=== PATIENT | male | born 1995 | race Caucasian/White ===

== ENCOUNTER → 2017-03-10 | Outpatient (REF) | payer BC ==
[2017-03-10 14:00] LABS: INFLUENZA A AMPLIFICATION NEGATIVE (NEGATIVE); INFLUENZA B AMPLIFICATION NEGATIVE (NEGATIVE)
== END ==
LOC: M LAB REF 13:14
DX: J11.1 Influenza due to unidentified influenza virus with other respiratory manifestations (principal)

== ENCOUNTER → 2017-04-11 | Outpatient (CLI) | payer BC | LOC: M RAD 11:36 | DX: N50.811 Right testicular pain (principal) ==

== ENCOUNTER → 2017-04-11 | Outpatient (CLI) | payer BC ==
[2017-04-11 16:53] LABS: BASO # 0.1 10^3/uL (0.0-0.2); BASO % 1.1 % (0.0-1.0); EOS # 0.3 10^3/uL (0.0-0.50); EOS % 5.8 % (0.0-3.0); HEMATOCRIT 45.9 % (42.0-52.0); HEMOGLOBIN 15.8 g/dl (14.0-18.0); IMMATURE GRANULOCYTE % 0.2 % (0-3.0); LYMPH # 2.4 10^3/uL (1.5-6.5); LYMPH % 42.5 % (24.0-44.0); MEAN CORPUSCULAR HEMOGLOBIN 31.4 pg (27.0-33.0); MEAN CORPUSCULAR HGB CONC 34.4 g/dl (32.0-36.5); MEAN CORPUSCULAR VOLUME 91.3 fl (80.0-96.0); MONO # 0.5 10^3/uL (0.0-0.8); MONO % 9.5 % (0.0-5.0); NEUTROPHILS # 2.3 10^3/uL (1.8-7.7); NEUTROPHILS % 40.9 % (36.0-66.0); PLATELET COUNT, AUTOMATED 218 10^3/uL (150-450); RED BLOOD COUNT 5.03 10^6/uL (4.30-6.10); RED CELL DISTRIBUTION WIDTH 12.8 % (11.5-14.5); WHITE BLOOD COUNT 5.7 10^3/uL (4.0-10.0)
[2017-04-11 17:31] LABS: ALBUMIN 5.1 GM/DL (3.2-5.2); ALKALINE PHOSPHATASE 89 U/L (45-117); ALT/SGPT 29 U/L (12-78); ANION GAP 2 MEQ/L (8-16); AST/SGOT 21 U/L (7-37); BILIRUBIN,TOTAL 0.7 MG/DL (0.2-1.0); BLOOD UREA NITROGEN 15 MG/DL (7-18); CALCIUM LEVEL 9.8 MG/DL (8.5-10.1); CARBON DIOXIDE LEVEL 32 MEQ/L (21-32); CHLORIDE LEVEL 104 MEQ/L (98-107); CREATININE FOR GFR 0.88 MG/DL (0.70-1.30); GLUCOSE, FASTING 85 MG/DL (70-100); POTASSIUM SERUM 4.7 MEQ/L (3.5-5.1); SODIUM LEVEL 138 MEQ/L (136-145); TOTAL PROTEIN 8.1 GM/DL (6.4-8.2)
[2017-04-11 21:05] LABS: CHLAMYDIA DNA AMPLIFICATION NEGATIVE (NEGATIVE); GC DNA AMPLIFICATION NEGATIVE (NEGATIVE)
== END ==
LOC: M WUC 11:23
DX: N50.811 Right testicular pain (principal)
CPT/HCPCS: 80053

== ENCOUNTER 2017-06-07 08:42 | Emergency (ER) | payer BC ==
[2017-06-07 09:20] LABS: BASO # 0.1 10^3/uL (0.0-0.2); BASO % 0.3 % (0.0-1.0); EOS # 0.1 10^3/uL (0.0-0.50); EOS % 0.7 % (0.0-3.0); HEMATOCRIT 50.1 % (42.0-52.0); HEMOGLOBIN 17.8 g/dl (13.5-17.5); IMMATURE GRANULOCYTE % 0.4 % (0-3.0); LYMPH # 0.9 10^3/uL (1.5-6.5); LYMPH % 4.3 % (24.0-44.0); MEAN CORPUSCULAR HEMOGLOBIN 31.3 pg (27.0-33.0); MEAN CORPUSCULAR HGB CONC 35.5 g/dl (32.0-36.5); MONO # 1.3 10^3/uL (0.0-0.8); MONO % 6.7 % (0.0-5.0); NEUTROPHILS # 17.5 10^3/uL (1.8-7.7); NEUTROPHILS % 87.6 % (36.0-66.0); PLATELET COUNT, AUTOMATED 271 10^3/uL (150-450); RED BLOOD COUNT 5.69 10^6/uL (4.30-6.10); RED CELL DISTRIBUTION WIDTH 12.7 % (11.5-14.5); WHITE BLOOD COUNT 19.9 10^3/uL (4.0-10.0)
[2017-06-07] MEDS: ONDANSETRON 4MG/2ML VIAL (J2405) IV (09:23)
[2017-06-07] MEDS: NS 1,000 ML IV (09:23)
[2017-06-07 10:08] LABS: ALBUMIN 5.5 GM/DL (3.2-5.2); ALBUMIN/GLOBULIN RATIO 1.62 (1.00-1.93); ALKALINE PHOSPHATASE 94 U/L (45-117); ALT/SGPT 31 U/L (12-78); AMYLASE 41 U/L (25-115); ANION GAP 9 MEQ/L (8-16); AST/SGOT 22 U/L (7-37); BILIRUBIN,DIRECT 0.3 MG/DL (0.0-0.2); BILIRUBIN,TOTAL 1.3 MG/DL (0.2-1.0); BLOOD UREA NITROGEN 18 MG/DL (7-18); CALCIUM LEVEL 10.4 MG/DL (8.5-10.1); CARBON DIOXIDE LEVEL 26 MEQ/L (21-32); CHLORIDE LEVEL 102 MEQ/L (98-107); CREATININE FOR GFR 1.13 MG/DL (0.70-1.30); GLUCOSE, FASTING 127 MG/DL (70-100); LIPASE 66 U/L (73-393); POTASSIUM SERUM 4.2 MEQ/L (3.5-5.1); SODIUM LEVEL 137 MEQ/L (136-145); TOTAL PROTEIN 8.9 GM/DL (6.4-8.2)
== END 2017-06-07 10:54 | disposition home or self-care (01) ==
LOC: M ED 08:42
DX: A08.4 Viral intestinal infection, unspecified (principal); F17.200 Nicotine dependence, unspecified, uncomplicated; Z88.0 Allergy status to penicillin; Z91.030 Bee allergy status; Z88.8 Allergy status to other drugs, medicaments and biological substances
CPT/HCPCS: J2405

== ENCOUNTER 2017-08-27 01:31 | Emergency (ER) | payer BC ==
[2017-08-27] MEDS: diphenhydrAMINE INJ 50MG/ML VIAL (J1200) IV (06:36)
[2017-08-27] MEDS: METOCLOPRAMIDE INJ 10MG/2ML VIAL (J2765) IV (06:36)
[2017-08-27] MEDS: KETOROLAC 30 MG/ML VIAL (J1885) IV (06:36)
[2017-08-27] MEDS: NS 1,000 ML IV (06:36)
== END 2017-08-27 07:08 | disposition home or self-care (01) ==
LOC: M ED 01:31
DX: R51 Headache (principal); R11.0 Nausea; F17.200 Nicotine dependence, unspecified, uncomplicated; Z88.0 Allergy status to penicillin; Z88.1 Allergy status to other antibiotic agents; Z91.030 Bee allergy status
CPT/HCPCS: J1200

== ENCOUNTER → 2017-08-30 | Outpatient (CLI) | payer BC | LOC: M WUC 16:55 | DX: G44.009 Cluster headache syndrome, unspecified, not intractable (principal) | CPT/HCPCS: 72040 ==

== ENCOUNTER 2017-11-21 08:55 | Emergency (ER) | payer BC ==
[2017-11-21] MEDS: ALBUTEROL SULFATE 2.5 MG/0.5 ML INH NEB SOLN NEB (09:40)
[2017-11-21 10:37] LABS: D-DIMER QUANT < 270.0 ng/ml (<500)
== END 2017-11-21 10:50 | disposition home or self-care (01) ==
LOC: M ED 08:55
DX: J06.9 Acute upper respiratory infection, unspecified (principal); F17.200 Nicotine dependence, unspecified, uncomplicated; Z88.0 Allergy status to penicillin; Z88.1 Allergy status to other antibiotic agents; Z91.030 Bee allergy status
CPT/HCPCS: 71046

== ENCOUNTER → 2018-04-04 | Outpatient (CLI) | payer BC ==
[~2018-04-04] MED LIST: ALBU17IN2 INH; ZOFR4TAB14 PO
[2018-04-04 16:52] LABS: HEMOGLOBIN A1c 5.6 %
[2018-04-04 17:00] LABS: ALBUMIN 4.7 GM/DL (3.2-5.2); ALT/SGPT 24 U/L (12-78); BILIRUBIN,DIRECT 0.2 MG/DL (0.0-0.2); BILIRUBIN,TOTAL 0.6 MG/DL (0.2-1.0); BLOOD UREA NITROGEN 14 MG/DL (7-18); CALCIUM LEVEL 9.5 MG/DL (8.5-10.1); CARBON DIOXIDE LEVEL 27 MEQ/L (21-32); CHLORIDE LEVEL 107 MEQ/L (98-107); CHOLESTEROL LEVEL 175 MG/DL (<200); CHOLESTEROL RISK RATIO 3.804 (<5); CREATININE FOR GFR 0.89 MG/DL (0.70-1.30); GLUCOSE, FASTING 81 MG/DL (70-100); HDL CHOLESTEROL 46 MG/DL (>40); LDL CHOLESTEROL 109 MG/DL (<100); NON-HDL-C 129 MG/DL; PHOSPHORUS LEVEL 3.6 MG/DL (2.5-4.9); POTASSIUM SERUM 4.3 MEQ/L (3.5-5.1); SODIUM LEVEL 141 MEQ/L (136-145); THYROID STIMULATING HORMONE 0.724 uIU/ML (0.463-3.98); TOTAL PROTEIN 7.7 GM/DL (6.4-8.2); TRIGLYCERIDES LEVEL 98 MG/DL (<150)
[2018-04-04 17:01] LABS: TOTAL 25(OH) VITAMIN D 13.6 NG/ML (30.0-100.0)
[2018-04-04 17:21] LABS: BASO % 0.5 % (0.0-1.0); EOS # 0.3 10^3/uL (0.0-0.50); EOS % 3.4 % (0.0-3.0); HEMOGLOBIN 14.4 g/dl (13.5-17.5); LYMPH # 2.6 10^3/uL (1.5-6.5); LYMPH % 30.8 % (24.0-44.0); MEAN CORPUSCULAR HEMOGLOBIN 31.7 pg (27.0-33.0); MEAN CORPUSCULAR HGB CONC 35.1 g/dl (32.0-36.5); MEAN CORPUSCULAR VOLUME 90.3 fl (80.0-96.0); MONO # 0.6 10^3/uL (0.0-0.8); MONO % 7.1 % (0.0-5.0); NEUTROPHILS % 57.8 % (36.0-66.0); PLATELET COUNT, AUTOMATED 201 10^3/uL (150-450); RED BLOOD COUNT 4.54 10^6/uL (4.30-6.10); WHITE BLOOD COUNT 8.6 10^3/uL (4.0-10.0)
--- NOTE | 2018-04-04 22:05 | ECGEPIP ---
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 No prior ECG available for comparison at the time of interpretation. Electronically Signed On 04-04-2018 22:05:16 EST by Stephen Coelho
== END ==
LOC: M LAB 15:46
PROVIDERS: ATTEND Registered Nurse
DX: F33.1 Major depressive disorder, recurrent, moderate (principal)

== ENCOUNTER 2019-02-28 18:18 | Emergency (ER) | payer BC ==
[~2019-02-28] VITALS: Ht 165.1 cm; Wt 64.0 kg
[~2019-02-28 18:18] MED LIST changes: -ALBU17IN2 INH; +PROV108A INH
[2019-02-28 19:00] LABS: BASO # 0.1 10^3/uL (0.0-0.2); BASO % 0.6 % (0.0-1.0); EOS # 0.3 10^3/uL (0.0-0.5); EOS % 3.2 % (0.0-3.0); HEMATOCRIT 44.1 % (42.0-52.0); HEMOGLOBIN 14.7 g/dl (13.5-17.5); LYMPH # 2.8 10^3/uL (1.5-5.0); LYMPH % 33.2 % (24.0-44.0); MEAN CORPUSCULAR HEMOGLOBIN 31.5 pg (27.0-33.0); MEAN CORPUSCULAR HGB CONC 33.3 g/dl (32.0-36.5); MEAN CORPUSCULAR VOLUME 94.4 fl (80.0-96.0); MONO # 0.8 10^3/uL (0.0-0.8); MONO % 9.6 % (0.0-5.0); NEUTROPHILS # 4.5 10^3/uL (1.5-8.5); NEUTROPHILS % 53.2 % (36.0-66.0); PLATELET COUNT, AUTOMATED 219 10^3/uL (150-450); RED BLOOD COUNT 4.67 10^6/uL (4.30-6.10); WHITE BLOOD COUNT 8.5 10^3/uL (4.0-10.0)
[2019-02-28 19:28] LABS: ALBUMIN 4.8 GM/DL (3.2-5.2); ALT/SGPT 19 U/L (12-78); BILIRUBIN,DIRECT 0.2 MG/DL (0.0-0.2); BILIRUBIN,TOTAL 0.5 MG/DL (0.2-1.0); BLOOD UREA NITROGEN 10 MG/DL (7-18); CALCIUM LEVEL 9.6 MG/DL (8.5-10.1); CARBON DIOXIDE LEVEL 29 MEQ/L (21-32); CHLORIDE LEVEL 105 MEQ/L (98-107); CREATININE FOR GFR 0.94 MG/DL (0.70-1.30); GLOMERULAR FILTRATION RATE > 60.0 (>60); GLUCOSE, FASTING 85 MG/DL (70-100); LIPASE 225 U/L (73-393); POTASSIUM SERUM 4.5 MEQ/L (3.5-5.1); SODIUM LEVEL 139 MEQ/L (136-145); TOTAL PROTEIN 7.5 GM/DL (6.4-8.2)
[2019-02-28] MEDS ORDERED: NS 1,000 ML IV ONE (21:45)
[2019-02-28] MEDS ORDERED: ONDANSETRON 4MG/2ML VIAL (J2405) IV ONE (21:45)
[2019-02-28] MEDS ORDERED: ISOVUE-370 76% 100ML VIAL (Q9967) As Ordered ONE (23:15)
--- NOTE | 2019-03-01 00:08 | REPVR ---
PROCEDURE INFORMATION: Exam: CT Abdomen And Pelvis With Contrast Exam date and time: 02/28/2019 10:23 PM Age: 23 years old Clinical indication: Abdominal pain; Generalized; Patient HX: DIFFUSE PAIN>; Additional Info: abd pain-diffuse, Diarrhea and Nausea TECHNIQUE: Imaging protocol: Computed tomography of the abdomen and pelvis with intravenous contrast. Radiation optimization: All CT scans at this facility use at least one of these dose optimization techniques: automated exposure control; mA and/or kV adjustment per patient size (includes targeted exams where dose is matched to clinical indication); or iterative reconstruction. Contrast material: ISO; Contrast volume: 100 ml; Contrast route: AC; COMPARISON: CT ABD PELVIS WITH CONTRAST 11/18/2013 7:38 PM FINDINGS: Liver: Normal. No mass. Gallbladder and bile ducts: Normal. No calcified stones. No ductal dilation. Pancreas: Normal. No ductal dilation. Spleen: Normal. No splenomegaly. Adrenals: Normal. No mass. Kidneys and ureters: Normal. No hydronephrosis. Stomach and bowel: Unremarkable. No obstruction. No mucosal thickening. Moderate stool in the colon. Negative for colonic diverticulitis. Appendix: Appendix is normal. Intraperitoneal space: Unremarkable. No free air. No significant fluid collection. Vasculature: Unremarkable. No abdominal aortic aneurysm. Lymph nodes: Unremarkable. No enlarged lymph nodes. Bladder: Unremarkable as visualized. Reproductive: Prostate appears borderline enlarged. Bones/joints: Unremarkable. No acute fracture. Soft tissues: Unremarkable. IMPRESSION: No acute findings. Electronically signed by: Figueroa Pérez On 03/01/2019 00:07:57 AM
[2019-03-01] MEDS ORDERED: ONDA4TAB6 PO (00:12)
[2019-03-01 00:23] VITALS: BP 125/71
== END 2019-03-01 00:39 | disposition home or self-care (01) ==
LOC: M ED 18:18
DX: K52.9 Noninfective gastroenteritis and colitis, unspecified (principal); F17.200 Nicotine dependence, unspecified, uncomplicated; Z88.0 Allergy status to penicillin; Z91.030 Bee allergy status; Z88.8 Allergy status to other drugs, medicaments and biological substances
CPT/HCPCS: 74177; 80048; 80076; 81001; 83690; 85025; 96361; 96374; 99284; J2405; Q9967

== ENCOUNTER → 2019-12-23 | Outpatient (CLI) | payer BC ==
[~2019-12-23] MED LIST changes: +MUPI2OI; +ONDA4TAB6 PO; +SULF1TAB93
[2019-12-23 17:22] LABS: BASO # 0.1 10^3/uL (0.0-0.2); BASO % 0.5 % (0.0-1.0); EOS # 0.4 10^3/uL (0.0-0.5); EOS % 3.2 % (0.0-3.0); HEMATOCRIT 41.6 % (42.0-52.0); HEMOGLOBIN 13.6 g/dl (13.5-17.5); LYMPH # 3.1 10^3/uL (1.5-5.0); LYMPH % 24.2 % (24.0-44.0); MEAN CORPUSCULAR HEMOGLOBIN 30.9 pg (27.0-33.0); MEAN CORPUSCULAR HGB CONC 32.7 g/dl (32.0-36.5); MEAN CORPUSCULAR VOLUME 94.5 fl (80.0-96.0); MONO # 1.5 10^3/uL (0.0-0.8); MONO % 11.5 % (0.0-5.0); NEUTROPHILS # 7.7 10^3/uL (1.5-8.5); NEUTROPHILS % 60.1 % (36.0-66.0); PLATELET COUNT, AUTOMATED 254 10^3/uL (150-450); WHITE BLOOD COUNT 12.7 10^3/uL (4.0-10.0)
[2019-12-23 17:34] LABS: ALBUMIN 4.3 GM/DL (3.2-5.2); ALT/SGPT 44 U/L (12-78); BILIRUBIN,TOTAL 0.4 MG/DL (0.2-1.0); BLOOD UREA NITROGEN 17 MG/DL (7-18); CALCIUM LEVEL 9.2 MG/DL (8.5-10.1); CARBON DIOXIDE LEVEL 29 MEQ/L (21-32); CHLORIDE LEVEL 101 MEQ/L (98-107); CREATININE FOR GFR 0.97 MG/DL (0.70-1.30); GLOMERULAR FILTRATION RATE > 60.0 (>60); GLUCOSE, FASTING 100 MG/DL (70-100); POTASSIUM SERUM 4.3 MEQ/L (3.5-5.1); SODIUM LEVEL 136 MEQ/L (136-145); TOTAL PROTEIN 7.1 GM/DL (6.4-8.2)
== END ==
LOC: M WUC 14:45
PROVIDERS: ATTEND Nurse Practitioner Family
DX: L03.113 Cellulitis of right upper limb (principal)

== ENCOUNTER 2019-12-25 06:09 | Emergency (ER) | payer BC ==
[~2019-12-25] VITALS: Ht 162.6 cm; Wt 58.8 kg
[~2019-12-25 06:09] MED LIST changes: -MUPI2OI; -SULF1TAB93
[2019-12-25] MEDS ORDERED: SULF1TAB93 (06:25)
[2019-12-25] MEDS ORDERED: MUPI2OI (06:25)
[2019-12-25 07:32] LABS: BASO # 0.1 10^3/uL (0.0-0.2); BASO % 0.5 % (0.0-1.0); EOS # 0.2 10^3/uL (0.0-0.5); HEMATOCRIT 39.4 % (42.0-52.0); HEMOGLOBIN 13.2 g/dl (13.5-17.5); LYMPH # 2.1 10^3/uL (1.5-5.0); LYMPH % 17.8 % (24.0-44.0); MEAN CORPUSCULAR HEMOGLOBIN 30.6 pg (27.0-33.0); MEAN CORPUSCULAR HGB CONC 33.5 g/dl (32.0-36.5); MEAN CORPUSCULAR VOLUME 91.2 fl (80.0-96.0); MONO % 8.3 % (0.0-5.0); NEUTROPHILS # 8.4 10^3/uL (1.5-8.5); NEUTROPHILS % 71.1 % (36.0-66.0); PLATELET COUNT, AUTOMATED 246 10^3/uL (150-450); RED BLOOD COUNT 4.32 10^6/uL (4.30-6.10); WHITE BLOOD COUNT 11.8 10^3/uL (4.0-10.0)
[2019-12-25] MEDS ORDERED: BOOSTRIX/ADACEL VACCINE (DIPHTH/PERTUSS/ACELL/TETANUS) 0.5ML SYR IM ONE (07:45)
--- NOTE | 2019-12-25 07:59 | REPVR ---
PROCEDURE INFORMATION: Exam: US Duplex Right Upper Extremity Veins, Limited Exam date and time: 12/25/2019 7:42 AM Age: 24 years old Clinical indication: Pain; Arm, lower; Right; Additional info: R/O dvt TECHNIQUE: Imaging protocol: Real-time Duplex ultrasound of the Right Upper Extremity with 2-D jerome scale, color Doppler flow and spectral waveform analysis with image documentation. Limited exam focused on the right upper extremity veins. COMPARISON: No relevant prior studies available. FINDINGS: Right deep veins: Unremarkable. Axillary and brachial veins are patent throughout without thrombus. Normal Doppler waveforms. Normal compressibility and/or augmentation response. Visualized internal jugular and subclavian veins are patent. Right superficial veins: Unremarkable. Visualized cephalic and basilic veins are patent without thrombus. Soft tissues: Unremarkable. IMPRESSION: No evidence of deep vein thrombosis. Electronically signed by: Jesse Bell On 12/25/2019 07:58:31 AM
[2019-12-25 08:00] LABS: ACETAMINOPHEN LEVEL < 2.0 UG/ML (10.0-30.0); ALBUMIN 3.9 GM/DL (3.2-5.2); ALT/SGPT 37 U/L (12-78); BILIRUBIN,TOTAL 0.3 MG/DL (0.2-1.0); BLOOD UREA NITROGEN 14 MG/DL (7-18); CALCIUM LEVEL 9.2 MG/DL (8.5-10.1); CARBON DIOXIDE LEVEL 25 MEQ/L (21-32); CHLORIDE LEVEL 103 MEQ/L (98-107); CREATININE FOR GFR 1.02 MG/DL (0.70-1.30); ETHYL ALCOHOL (ETHANOL) < 0.003 % (0.000-0.010); GLOMERULAR FILTRATION RATE > 60.0 (>60); GLUCOSE, FASTING 108 MG/DL (70-100); POTASSIUM SERUM 3.8 MEQ/L (3.5-5.1); SALICYLATE LEVEL < 1.7 MG/DL (5.0-30.0); SODIUM LEVEL 136 MEQ/L (136-145)
--- NOTE | 2019-12-25 08:06 | REPVR ---
PROCEDURE INFORMATION: Exam: US Right Non-Vascular Joint or Other Extremity Structure, Limited Upper Extremity Exam date and time: 12/25/2019 7:42 AM Age: 24 years old Clinical indication: Pain; Lower or forearm; Right; Additional info: Swollen, erythematous area right forearm TECHNIQUE: Imaging protocol: Right US joint or other nonvascular extremity structure or structures. Real-time ultrasound with image documentation. Limited study. Exam focused on the upper extremity in the region of clinical interest. COMPARISON: No relevant prior studies available. FINDINGS: Soft tissues: Targeted ultrasound examination of the right lower forearm at the site of needle injection demonstrates a well-defined complex thick-walled mixed echogenicity fluid collection measuring 2.3 x 1.5 x 0.7 cm in dimensions with mild peripheral vascularity which may represent resolving hematoma versus abscess. Clinical correlation is recommended. IMPRESSION: Targeted ultrasound examination of the right lower forearm at the site of needle injection demonstrates a well-defined complex thick-walled mixed echogenicity fluid collection measuring 2.3 x 1.5 x 0.7 cm in dimensions with mild peripheral vascularity which may represent resolving hematoma versus abscess. Clinical correlation is recommended. Electronically signed by: Jesse Bell On 12/25/2019 08:05:59 AM
[2019-12-25] MEDS ORDERED: LIDOCAINE W/EPINEPHRINE 1% 20ML VIAL INFIL ONE (08:15)
[2019-12-25 08:56] VITALS: BP 140/93
[2019-12-25 09:51] LABS: HEPATITIS B SURFACE ANTIGEN NEGATIVE (NEGATIVE)
[2019-12-25 09:52] LABS: HEPATITIS B SURFACE ANTIBODY NEGATIVE (POSITIVE)
[2019-12-25 10:01] LABS: HEPATITIS C VIRUS ABY INDEX 0.1 INDEX (<0.8)
[2019-12-25 10:02] LABS: HIV 1&2 SCREEN CENTAUR NEGATIVE (NEGATIVE)
== END 2019-12-25 09:16 | disposition home or self-care (01) ==
LOC: EEVIPCON 06:09 → M ED 06:09
DX: L02.413 Cutaneous abscess of right upper limb (principal); L03.113 Cellulitis of right upper limb; Z77.21 Contact with and (suspected) exposure to potentially hazardous body fluids; Z88.0 Allergy status to penicillin; Z88.8 Allergy status to other drugs, medicaments and biological substances; Z91.030 Bee allergy status; F17.210 Nicotine dependence, cigarettes, uncomplicated; F12.20 Cannabis dependence, uncomplicated
CPT/HCPCS: 10060; 36415; 76882; 80053; 85025; 86706; 86803; 87040; 87070; 87077; 87186; 87205; 87340; 87389; 90471; 90715; 93971; 99284; G0480

== ENCOUNTER 2020-08-19 23:48 | Emergency (ER) | payer BC ==
[~2020-08-19 23:48] MED LIST changes: +BACTDSTA; +MUPI2OI
[2020-08-20] MEDS ORDERED: LORazepam 2 MG/ML VIAL IV STA (00:11)
[2020-08-20] MEDS ORDERED: LORazepam 2 MG/ML VIAL As Ordered ONE (00:12)
[2020-08-20 00:14] LABS: BASO # 0.1 10^3/uL (0.0-0.2); BASO % 0.3 % (0.0-1.0); EOS # 0.1 10^3/uL (0.0-0.5); EOS % 0.2 % (0.0-3.0); HEMATOCRIT 41.9 % (42.0-52.0); HEMOGLOBIN 13.9 g/dl (13.5-17.5); LYMPH # 3.4 10^3/uL (1.5-5.0); LYMPH % 15.4 % (24.0-44.0); MEAN CORPUSCULAR HEMOGLOBIN 30.5 pg (27.0-33.0); MEAN CORPUSCULAR HGB CONC 33.2 g/dl (32.0-36.5); MEAN CORPUSCULAR VOLUME 92.1 fl (80.0-96.0); MONO # 1.4 10^3/uL (0.0-0.8); MONO % 6.2 % (2.0-8.0); NEUTROPHILS # 16.8 10^3/uL (1.5-8.5); NEUTROPHILS % 77.4 % (36.0-66.0); PLATELET COUNT, AUTOMATED 322 10^3/uL (150-450); RED BLOOD COUNT 4.55 10^6/uL (4.30-6.10); WHITE BLOOD COUNT 21.8 10^3/uL (4.0-10.0)
[2020-08-20 00:44] LABS: ALBUMIN 4.3 GM/DL (3.2-5.2); ALT/SGPT 30 U/L (12-78); BILIRUBIN,DIRECT 0.1 MG/DL (0.0-0.2); BILIRUBIN,TOTAL 0.5 MG/DL (0.2-1.0); BLOOD UREA NITROGEN 10 MG/DL (7-18); CALCIUM LEVEL 9.8 MG/DL (8.5-10.1); CARBON DIOXIDE LEVEL 21 MEQ/L (21-32); CHLORIDE LEVEL 103 MEQ/L (98-107); CPK CREATINE PHOSPHOKINASE 925 U/L (39-308); CREATININE FOR GFR 1.31 MG/DL (0.70-1.30); GLOMERULAR FILTRATION RATE > 60.0 (>60); GLUCOSE, FASTING 155 MG/DL (70-100); POTASSIUM SERUM 3.5 MEQ/L (3.5-5.1); SALICYLATE LEVEL 2.3 MG/DL (5.0-30.0); SODIUM LEVEL 139 MEQ/L (136-145)
[2020-08-20 00:45] LABS: ACETAMINOPHEN LEVEL < 2.0 UG/ML (10.0-30.0); ETHYL ALCOHOL (ETHANOL) < 0.003 % (0.000-0.010)
[2020-08-20] MEDS ORDERED: NS 1,000 ML IV ONE ×2 (01:10)
[2020-08-20 02:00] VITALS: BP 128/73
--- NOTE | 2020-08-20 20:08 | ECGEPIP ---
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
== END 2020-08-20 02:28 | disposition left against medical advice (07) ==
LOC: M ED 23:48
DX: F19.10 Other psychoactive substance abuse, uncomplicated (principal); R00.0 Tachycardia, unspecified; Z53.9 Procedure and treatment not carried out, unspecified reason; Z80.0 Family history of malignant neoplasm of digestive organs; Z88.1 Allergy status to other antibiotic agents; Z91.030 Bee allergy status
CPT/HCPCS: 36415; 80048; 80076; 80143; 82077; 82550; 84443; 85025; 93005; 93041; 94760; 96361; 96374; 99285; J2060

== ENCOUNTER 2020-08-22 02:43 | Emergency (ER) | payer BC ==
[~2020-08-22] VITALS: Ht 167.6 cm; Wt 56.8 kg
[2020-08-22] MEDS ORDERED: HALOPERIDOL 5MG/ML VIAL (J1630 PER 1) IM ONE (03:55)
[2020-08-22] MEDS ORDERED: diphenhydrAMINE 50MG/ML VIAL (J1200) IM ONE (03:55)
[2020-08-22] MEDS ORDERED: LORazepam 2 MG/ML VIAL IM ONE (03:55)
[2020-08-22 06:19] LABS: HEMATOCRIT 40.1 % (42.0-52.0); HEMOGLOBIN 13.3 g/dl (13.5-17.5); MEAN CORPUSCULAR HEMOGLOBIN 30.7 pg (27.0-33.0); MEAN CORPUSCULAR HGB CONC 33.2 g/dl (32.0-36.5); MEAN CORPUSCULAR VOLUME 92.6 fl (80.0-96.0); PLATELET COUNT, AUTOMATED 296 10^3/uL (150-450); RED BLOOD COUNT 4.33 10^6/uL (4.30-6.10); WHITE BLOOD COUNT 14.3 10^3/uL (4.0-10.0)
[2020-08-22 06:41] LABS: ACETAMINOPHEN LEVEL < 2.0 UG/ML (10.0-30.0); ALBUMIN 3.9 GM/DL (3.2-5.2); ALT/SGPT 30 U/L (12-78); BILIRUBIN,DIRECT 0.2 MG/DL (0.0-0.2); BILIRUBIN,TOTAL 0.5 MG/DL (0.2-1.0); BLOOD UREA NITROGEN 9 MG/DL (7-18); CALCIUM LEVEL 9.7 MG/DL (8.5-10.1); CARBON DIOXIDE LEVEL 28 MEQ/L (21-32); CHLORIDE LEVEL 106 MEQ/L (98-107); CREATININE FOR GFR 0.87 MG/DL (0.70-1.30); ETHYL ALCOHOL (ETHANOL) < 0.003 % (0.000-0.010); GLOMERULAR FILTRATION RATE > 60.0 (>60); GLUCOSE, FASTING 107 MG/DL (70-100); POTASSIUM SERUM 4.3 MEQ/L (3.5-5.1); SALICYLATE LEVEL 1.9 MG/DL (5.0-30.0); SODIUM LEVEL 142 MEQ/L (136-145); THYROID STIMULATING HORMONE 0.529 uIU/ML (0.358-3.740); TOTAL PROTEIN 7.5 GM/DL (6.4-8.2)
[2020-08-22 14:16] LABS: AMPHETAMINES LEVEL URINE POSITIVE (NEGATIVE); BARBITURATES URINE NEGATIVE (NEGATIVE); BENZODIAZEPINES URINE NEGATIVE (NEGATIVE); CANNABINOIDS URINE POSITIVE (NEGATIVE); COCAINE METABOLITE URINE NEGATIVE (NEGATIVE); METHADONE URINE NEGATIVE (NEGATIVE); OPIATES URINE NEGATIVE (NEGATIVE); PHENCYCLIDINE URINE NEGATIVE (NEGATIVE)
== END 2020-08-22 15:36 | disposition home or self-care (01) ==
LOC: M ED 02:43
DX: F19.10 Other psychoactive substance abuse, uncomplicated (principal); F17.200 Nicotine dependence, unspecified, uncomplicated; Z88.0 Allergy status to penicillin; Z88.1 Allergy status to other antibiotic agents; Z91.030 Bee allergy status
CPT/HCPCS: 80048; 80076; 80143; 80307; 82077; 84443; 85027; 96372; 99284; J1200; J1630; J2060

== ENCOUNTER 2020-08-28 14:34 | Emergency (ER) | payer BC ==
[~2020-08-28] VITALS: Ht 160 cm; Wt 61.4 kg
[2020-08-28 15:18] LABS: HEMATOCRIT 43.8 % (42.0-52.0); HEMOGLOBIN 14.7 g/dl (13.5-17.5); MEAN CORPUSCULAR HEMOGLOBIN 30.9 pg (27.0-33.0); MEAN CORPUSCULAR HGB CONC 33.6 g/dl (32.0-36.5); PLATELET COUNT, AUTOMATED 320 10^3/uL (150-450); RED BLOOD COUNT 4.76 10^6/uL (4.30-6.10)
[2020-08-28 15:49] LABS: ACETAMINOPHEN LEVEL < 2.0 UG/ML (10.0-30.0); ALBUMIN 4.4 GM/DL (3.2-5.2); ALT/SGPT 32 U/L (12-78); BILIRUBIN,DIRECT 0.1 MG/DL (0.0-0.2); BILIRUBIN,TOTAL 0.4 MG/DL (0.2-1.0); BLOOD UREA NITROGEN 24 MG/DL (7-18); CALCIUM LEVEL 9.5 MG/DL (8.5-10.1); CARBON DIOXIDE LEVEL 28 MEQ/L (21-32); CHLORIDE LEVEL 101 MEQ/L (98-107); CREATININE FOR GFR 0.79 MG/DL (0.70-1.30); ETHYL ALCOHOL (ETHANOL) < 0.003 % (0.000-0.010); GLOMERULAR FILTRATION RATE > 60.0 (>60); GLUCOSE, FASTING 93 MG/DL (70-100); POTASSIUM SERUM 4.6 MEQ/L (3.5-5.1); SALICYLATE LEVEL < 1.7 MG/DL (5.0-30.0); SODIUM LEVEL 133 MEQ/L (136-145); TOTAL PROTEIN 8.1 GM/DL (6.4-8.2)
[2020-08-28 17:43] LABS: AMPHETAMINES LEVEL URINE NEGATIVE (NEGATIVE); BARBITURATES URINE NEGATIVE (NEGATIVE); BENZODIAZEPINES URINE NEGATIVE (NEGATIVE); CANNABINOIDS URINE POSITIVE (NEGATIVE); COCAINE METABOLITE URINE NEGATIVE (NEGATIVE); METHADONE URINE NEGATIVE (NEGATIVE); OPIATES URINE NEGATIVE (NEGATIVE); PHENCYCLIDINE URINE NEGATIVE (NEGATIVE)
[2020-08-28] MEDS ORDERED: LORazepam 1 MG TAB PO STA (20:59)
[2020-08-29 06:34] VITALS: BP 130/78
== END 2020-08-29 08:06 | disposition home or self-care (01) ==
LOC: M ED 14:34
DX: F29 Unspecified psychosis not due to a substance or known physiological condition (principal); F19.10 Other psychoactive substance abuse, uncomplicated; Z88.1 Allergy status to other antibiotic agents; Z88.0 Allergy status to penicillin; Z91.030 Bee allergy status

== ENCOUNTER 2020-08-31 11:55 | Emergency (ER) | payer BC ==
[~2020-08-31] VITALS: Ht 160 cm; Wt 59.2 kg
[2020-08-31 11:55] VITALS: BP 159/81
== END 2020-08-31 13:23 | disposition home or self-care (01) ==
LOC: M ED 11:55
DX: F19.10 Other psychoactive substance abuse, uncomplicated (principal); Z59.0 Homelessness; Z88.1 Allergy status to other antibiotic agents; Z91.030 Bee allergy status

== ENCOUNTER 2020-09-01 07:03 | Emergency (ER) | payer BC ==
[~2020-09-01] VITALS: Ht 165.1 cm; Wt 59.8 kg
--- NOTE | 2020-09-01 09:15 | REP ---
INDICATION: back/thoracic pain COMPARISON: 11/21/2017. TECHNIQUE: PA/Lateral FINDINGS: Lungs: Clear, no infiltrate. Heart: Normal in size. Mediastinum: Mediastinal silhouette unremarkable. Pleural angles: Unremarkable.. Bones and soft tissues: Unremarkable. IMPRESSION: No acute pulmonary disease. <Electronically signed by Leighton Shirley > 09/01/20 0911
[2020-09-01 12:02] VITALS: BP 126/82
--- NOTE | 2020-09-01 21:16 | ECGEPIP ---
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 Order Number: [id number] Reading MD: Stephen Lee Measurements Intervals [place] Rate: 77 P: 77 [place]: 124 QRS: 71 QRSD: 80 T: 60 QT: 380 QTc: 430 Interpretive Statements Normal sinus rhythm Rate decreased from tracing done 08-20-20 Electronically Signed on 09-01-2020 21:16:02 EDT by Stephen Lee
== END 2020-09-01 14:02 | disposition home or self-care (01) ==
LOC: M ED 07:03
DX: F41.9 Anxiety disorder, unspecified (principal); F43.0 Acute stress reaction; F17.200 Nicotine dependence, unspecified, uncomplicated; Z88.0 Allergy status to penicillin; Z88.1 Allergy status to other antibiotic agents; Z91.030 Bee allergy status

== ENCOUNTER 2020-09-09 21:45 | Emergency (ER) | payer BC ==
[~2020-09-09] VITALS: Ht 157.5 cm; Wt 59.0 kg
[2020-09-09] MEDS ORDERED: NS 1,000 ML IV ONE (21:50)
[2020-09-09 22:08] LABS: HEMATOCRIT 41.5 % (42.0-52.0); MEAN CORPUSCULAR HEMOGLOBIN 31.1 pg (27.0-33.0); MEAN CORPUSCULAR HGB CONC 33.7 g/dl (32.0-36.5); MEAN CORPUSCULAR VOLUME 92.2 fl (80.0-96.0); PLATELET COUNT, AUTOMATED 308 10^3/uL (150-450); WHITE BLOOD COUNT 17.6 10^3/uL (4.0-10.0)
[2020-09-09 22:27] LABS: ATYPICAL LYMPH 3 % (0-5); BASOPHILS 1 % (0-1); EOSINOPHILS 1 % (0-3); LYMPHOCYTES 38 % (16-44); MONOCYTES 4 % (0-5); NEUTROPHILS 53 % (28-66); PLATELET ESTIMATE NORMAL (NORMAL)
[2020-09-09 22:43] LABS: ACETAMINOPHEN LEVEL < 2.0 UG/ML (10.0-30.0); ALBUMIN 4.2 GM/DL (3.2-5.2); ALT/SGPT 30 U/L (12-78); BILIRUBIN,DIRECT < 0.1 MG/DL (0.0-0.2); BILIRUBIN,TOTAL 0.2 MG/DL (0.2-1.0); BLOOD UREA NITROGEN 16 MG/DL (7-18); CARBON DIOXIDE LEVEL 24 MEQ/L (21-32); CHLORIDE LEVEL 108 MEQ/L (98-107); CPK CREATINE PHOSPHOKINASE 289 U/L (39-308); CREATININE FOR GFR 0.86 MG/DL (0.70-1.30); ETHYL ALCOHOL (ETHANOL) 0.146 % (0.000-0.010); GLOMERULAR FILTRATION RATE > 60.0 (>60); GLUCOSE, FASTING 137 MG/DL (70-100); POTASSIUM SERUM 3.6 MEQ/L (3.5-5.1); SODIUM LEVEL 142 MEQ/L (136-145); TOTAL PROTEIN 7.7 GM/DL (6.4-8.2)
[2020-09-09 23:38] LABS: AMPHETAMINES LEVEL URINE NEGATIVE (NEGATIVE); BARBITURATES URINE NEGATIVE (NEGATIVE); BENZODIAZEPINES URINE NEGATIVE (NEGATIVE); CANNABINOIDS URINE POSITIVE (NEGATIVE); COCAINE METABOLITE URINE NEGATIVE (NEGATIVE); METHADONE URINE NEGATIVE (NEGATIVE); OPIATES URINE NEGATIVE (NEGATIVE); PHENCYCLIDINE URINE NEGATIVE (NEGATIVE)
[2020-09-10] MEDS ORDERED: ONDANSETRON 4MG/2ML VIAL IV ONE (03:05)
[2020-09-10 07:18] LABS: RSV AMPLIFICATION NEGATIVE (NEGATIVE)
[2020-09-10 10:10] VITALS: BP 130/60
--- NOTE | 2020-09-11 07:28 | ECGEPIP ---
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
== END 2020-09-10 10:14 | disposition home or self-care (01) ==
LOC: M ED 21:45
DX: F10.129 Alcohol abuse with intoxication, unspecified (principal); Z76.5 Malingerer [conscious simulation]; S70.01XA Contusion of right hip, initial encounter; X58.XXXA Exposure to other specified factors, initial encounter; Y92.9 Unspecified place or not applicable; Y93.9 Activity, unspecified; Y99.9 Unspecified external cause status; F19.10 Other psychoactive substance abuse, uncomplicated; F41.9 Anxiety disorder, unspecified; F17.200 Nicotine dependence, unspecified, uncomplicated; F12.10 Cannabis abuse, uncomplicated; Z88.0 Allergy status to penicillin; Z88.1 Allergy status to other antibiotic agents; Z91.030 Bee allergy status
CPT/HCPCS: 51701; 80048; 80076; 80143; 80307; 82077; 82550; 84443; 85025; 87631; 93005; 93041; 94760; 96360; 96361; 96374; 99285; J2405

== ENCOUNTER 2020-09-22 19:32 | Inpatient (IN) | payer BC ==
[~2020-09-22] VITALS: Ht 157.5 cm; Wt 60.5 kg
[2020-09-22 20:36] LABS: HEMATOCRIT 42.5 % (42.0-52.0); HEMOGLOBIN 14.5 g/dl (13.5-17.5); MEAN CORPUSCULAR HEMOGLOBIN 30.8 pg (27.0-33.0); MEAN CORPUSCULAR HGB CONC 34.1 g/dl (32.0-36.5); MEAN CORPUSCULAR VOLUME 90.2 fl (80.0-96.0); PLATELET COUNT, AUTOMATED 269 10^3/uL (150-450); RED BLOOD COUNT 4.71 10^6/uL (4.30-6.10); WHITE BLOOD COUNT 8.7 10^3/uL (4.0-10.0)
[2020-09-22 21:09] LABS: AMPHETAMINES LEVEL URINE NEGATIVE (NEGATIVE); BARBITURATES URINE NEGATIVE (NEGATIVE); BENZODIAZEPINES URINE NEGATIVE (NEGATIVE); CANNABINOIDS URINE POSITIVE (NEGATIVE); COCAINE METABOLITE URINE NEGATIVE (NEGATIVE); METHADONE URINE NEGATIVE (NEGATIVE); OPIATES URINE NEGATIVE (NEGATIVE); PHENCYCLIDINE URINE NEGATIVE (NEGATIVE)
[2020-09-22 21:20] LABS: ACETAMINOPHEN LEVEL < 2.0 UG/ML (10.0-30.0); ALBUMIN 4.2 GM/DL (3.2-5.2); ALT/SGPT 33 U/L (12-78); BILIRUBIN,DIRECT < 0.1 MG/DL (0.0-0.2); BILIRUBIN,TOTAL 0.2 MG/DL (0.2-1.0); BLOOD UREA NITROGEN 19 MG/DL (7-18); CALCIUM LEVEL 9.2 MG/DL (8.5-10.1); CARBON DIOXIDE LEVEL 25 MEQ/L (21-32); CHLORIDE LEVEL 103 MEQ/L (98-107); CREATININE FOR GFR 0.68 MG/DL (0.70-1.30); ETHYL ALCOHOL (ETHANOL) < 0.003 % (0.000-0.010); GLOMERULAR FILTRATION RATE > 60.0 (>60); GLUCOSE, FASTING 87 MG/DL (70-100); POTASSIUM SERUM 4.7 MEQ/L (3.5-5.1); SALICYLATE LEVEL < 1.7 MG/DL (5.0-30.0); SODIUM LEVEL 134 MEQ/L (136-145); THYROID STIMULATING HORMONE 0.882 uIU/ML (0.358-3.740); TOTAL PROTEIN 7.6 GM/DL (6.4-8.2)
[2020-09-22] MEDS ORDERED: HOME MED LIST COMPLETE! XX SCH (21:45)
[2020-09-23] MEDS ORDERED: LORazepam 2 MG TAB PO ONE (02:30)
[2020-09-23] MEDS ORDERED: hydrOXYzine 50 MG TAB PO ONE (11:15)
[2020-09-23 12:05] LABS: RSV AMPLIFICATION NEGATIVE (NEGATIVE)
[2020-09-23] MEDS ORDERED: traZODone 50 MG TAB PO PRN (16:35)
[2020-09-23] MEDS ORDERED: MAALOX 30 ML SUSP *UDC PO PRN (16:35)
[2020-09-23] MEDS ORDERED: MOM 30ML SUSPENSION UDC PO PRN (16:35)
[2020-09-24] MEDS: NICOTINE 14 MG/24 HR TRANSDERMAL TD SCH (08:34)
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
[2020-09-24] MEDS: hydrOXYzine 50 MG TAB PO PRN (17:02)
[2020-09-24 17:44] VITALS: BP 123/70
[2020-09-25 06:29] VITALS: BP 106/59
[2020-09-25] MEDS: NICOTINE 14 MG/24 HR TRANSDERMAL TD SCH (08:49)
[2020-09-25] MEDS ORDERED: HALOPERIDOL 5MG/ML VIAL (J1630 PER 1) IM STA (13:09)
[2020-09-25] MEDS ORDERED: LORazepam 2 MG/ML VIAL IM STA (13:09)
[2020-09-25] MEDS ORDERED: diphenhydrAMINE 50MG/ML VIAL (J1200) IM STA (13:09)
[2020-09-25] MEDS ORDERED: HALOPERIDOL 5MG/ML VIAL (J1630 PER 1) As Ordered ONE (13:10)
[2020-09-25] MEDS ORDERED: diphenhydrAMINE 50MG/ML VIAL (J1200) As Ordered ONE (13:11)
[2020-09-25] MEDS ORDERED: LORazepam 2 MG/ML VIAL As Ordered ONE (13:13)
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
[2020-09-25 13:45] VITALS: BP 118/69
--- NOTE | 2020-09-25 13:59 | MHIPNPDOC ---
[facility] Progress Note Progress Note DATE OF SERVICE: 09/25/20 HISTORY: Patient is a 25 -year-old Single, Unemployed, Undomiciled, , male, who reports getting in an argument with his father but denies making suicidal statement. He had reported that he missed a girlfriend with whom he no longer has contact as both sets of parents fought to keep them apart. He states that his ex-girlfriend's mother initiated an order of protection against him. Patient was very vague in his interview, he appears to be very obsessive about this past relationship and stated "She is the only one that really knew me.". VITAL SIGNS: See below. CURRENT MEDICATIONS: See below. MENTAL STATUS EXAMINATION: Patient is a 25 -year-old Single, Unemployed, Undomiciled, , male, who reports getting in an argument with his father but denies making suicidal statement. In today's interview, patient appears to have mild psychotic symptoms General Appearance: unkempt, disheveled, appears stated age Build: average Demeanor: withdrawn, guarded Eye Contact: fair Activity: anxious Behavior: loss of interests, anhedonia, withdrawn Speech: slow, low in volume, Mood: depressed, anxious Affect: constricted Thought Process: logical/linear, slow, scattered Thought Content (Delusions): persecutory Thought Content (Other): obsessional, guarded Thought Content (Aggressive): none reported Perception (Hallucinations): auditory Perception (Other): none reported Cognition (Impairment of): none reported Cognition(Intelligence Est.): other Oriented: Awake (Below average), Alert, Oriented times three, not to situation Insight: fair Judgment: Fair Psychosis: Denies DIAGNOSES: Unspecified depressive disorder r/o Unspecified Schizophrenia Disorder Rule out generalized anxiety disorder ASSESSMENT: Met with patient in the AM and he was reporting that he was feeling better and wanted to be discharged. He was superficial and when asked about details of his fighting with his father, he could not report any stressors. States that his father does not listen to him. Patient wad guarded and was disengaged in the interview, he was unable to report the education and in the interview he appeared to have a below than average intelligence, he was very vague and had an poor communication skills. He reports that he is not have depression and that he did not have suicidal ideation. Late in the shift patient's behaviors were report. Patient had been escalating in agitation, aggression and demanding to be discharged. He was initially offered an anxiolytic which he had refused. He was reporting psychotic symptoms of auditory hallucinations and delusional thoughts. Provider sat with him to help de-escalate, reinforcing his admission and that he was safe in the hospital. I reinforced need for medications and again oral anti-psychotic emergency medication. Patient refused. Patient educated on the need for medications and he refused while continuing to escalate, clenching his jaw, making a fist and posturing. Patient posed imminent danger of harming self or others: Patient continued with his aggressive behaviors, reporting that he would assault people and stated 'I don't care if I go to penitentiary." Reinforced with patient that his mood and angry needed to be mitigated with medications and that he can willingly take the medications. Patient's behaviors continued to escalate, he was tearful, angry with his father, angry with being admitted to the hospital and his psychotic symptoms appeared to be worsening -repeatedly said that "they are telling him what to do." Patient's father requesting to speak to provider, call to father and message left. MANAGEMENT PLAN: Continued medications and supportive therapy. Risperdal 2 mg HS added to current regimen. Will discharge when stable TIME SPENT: 45 minutes. Vital Signs Vital Signs Date Time Temp Pulse Resp B/P (MAP) Pulse Ox O2 Delivery O2 Flow Rate FiO2 09/25/20 06:29 98.2 59 16 106/59 (75) 100 Room Air Current Medications Current Medications Medications (Trade) Dose Ordered Sig/Conner Route PRN Reason Start Time Stop Time Status Last Admin Dose Admin Al Hydrox/Mg Hydrox/Simethicone (Mylanta) 30 ml Q4HP PRN PO HEARTBURN/INDIGESTION 09/23/20 16:35 Home Med (Home Med List Complete!) ASDIRECTED XX 09/22/20 21:45 09/22/20 21:44 DC Hydroxyzine HCl (Atarax) 50 mg Q6HP PRN PO ANXIETY 09/24/20 14:35 09/24/20 17:02 Ibuprofen (Advil) 400 mg Q6HP PRN PO MODERATE PAIN (PS 5-7) 09/23/20 16:35 Magnesium Hydroxide (Milk Of Magnesia) 30 ml DAILYPRN PRN PO CONSTIPATION 09/23/20 16:35 Nicotine (Nicoderm Cq 14mg) 1 patch DAILY TD 09/24/20 09:00 Olanzapine (ZyPREXA ZYDIS) 5 mg Q6HP PRN PO AGITATION 09/24/20 14:35 Risperidone (RisperDAL) 2 mg QHS PO 09/25/20 21:00 Trazodone HCl (Desyrel) 50 mg QHSP PRN PO INSOMNIA 09/23/20 16:35 Allergies Coded Allergies: amoxicillin (Verified Allergy, Unknown, 08/22/20) cefuroxime (Verified Allergy, Unknown, 08/22/20) clavulanic acid (Verified Allergy, Unknown, 08/22/20) SIRISHA WALTERS NP Sep 25, 2020 12:50
[2020-09-25 14:00] VITALS: BP 134/68
[2020-09-25 14:15] VITALS: BP 142/76
[2020-09-25] MEDS ORDERED: risperiDONE 2 MG TAB PO SCH (21:00)
[2020-09-26 06:28] VITALS: BP 125/75
[2020-09-26] MEDS: risperiDONE 2 MG TAB PO SCH ×2 (09:00→21:00)
[2020-09-26] MEDS: NICOTINE 14 MG/24 HR TRANSDERMAL TD SCH (09:00)
--- NOTE | 2020-09-26 11:12 | MHPR ---
General Date: Sep 26, 2020 Time: 10:09 Post-Restraint Evaluation THE OUTCOME OF THE RESTRAINT: Patient was out of restraints after 60 minutes EFFECTIVENESS OF THE RESTRAINT: Mechanical and/or chemical: Patient was less agitated and it was effective ANY EVIDENCE THAT THE PATIENT WAS AFFECTED EMOTIONALLY: No ANY NEED FOR COUNSELING/ASSISTANCE: Have discussed with patient prior to, during and post restraint that his anxiety and agitation can be de-escalated by requesting medications and asking to speak to his RN CHANGES IN TREATMENT PLAN: None RECOMMENDATIONS FOR FUTURE INCIDENTS: Patient may need additional medications for mood stabilization and psychosis SIRISHA WALTERS NP Sep 26, 2020 11:12
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
[2020-09-26 17:19] VITALS: BP 146/75
[2020-09-26] MEDS: FLUTICASONE PROP 0.05% NASAL SPRAY 16 GM (FLONASE) NARES SCH (21:00)
[2020-09-27 07:17] VITALS: BP 113/85
[2020-09-27] MEDS: MULTIVITAMINS/MINERALS THERAP 1 TAB PO SCH (08:08)
[2020-09-27] MEDS: FLUTICASONE PROP 0.05% NASAL SPRAY 16 GM (FLONASE) NARES SCH ×2 (08:08→20:26)
[2020-09-27] MEDS: risperiDONE 2 MG TAB PO SCH ×2 (08:21→20:27)
[2020-09-27] MEDS: NICOTINE 14 MG/24 HR TRANSDERMAL TD SCH (08:21)
--- NOTE | 2020-09-27 15:38 | MHIPN ---
[facility] PROGRESS NOTE DATE: 09/27/2020 VITAL SIGNS: Blood pressure 113/85, pulse 88, temperature 96.9. CHIEF COMPLAINT: Feels better. SUBJECTIVE: Seen for followup. He is in the inpatient unit at the hospital. I am at home. This is a video assessment. He is aware of it and agrees to it and its limitations. When I saw him there was no member of staff with him at the time. He says he has been feeling better and he feels good. He was a bit vague on this. Says sleep is okay. Spoke of feeling more rested. Appetite is fair. Denies any suicidal thoughts or intents at present. MENTAL STATUS EXAMINATION: He is neat, cooperative, though possibly a bit guarded. No overt agitation. No psychomotor retardation. Coherent. Affect reactive, somewhat restricted in range but possibly guarded. No abnormal movements noted. Denies any suicidal thoughts or intents. No homicidal ideas or intents. Currently he does not appear internally preoccupied. No delusional ideations elicited. Cognition grossly intact. Judgment and insight remain compromised. ASSESSMENT: Unspecified psychotic disorder. Possibility of an anxiety disorder is considered. Also consider substance-induced psychotic disorder, as reviewing the chart there is evidence of that. PLAN: Continue current care, observations. He has declined taking risperidone, which has been prescribed. We will continue offering it to him and also reassess, later, indications for it, particularly given history of substance misuse. He was positive for cannabis when he came in. Continue the rest of the observations. Encourage participate in activities in the unit. I would suggest looking at further collateral information. Further recommendations will be made depending on the clinical picture.
[2020-09-27 17:25] VITALS: BP 144/86
[2020-09-28 06:45] VITALS: BP 144/80
[2020-09-28] MEDS: MULTIVITAMINS/MINERALS THERAP 1 TAB PO SCH (08:44)
[2020-09-28] MEDS: FLUTICASONE PROP 0.05% NASAL SPRAY 16 GM (FLONASE) NARES SCH ×2 (08:44→21:10)
[2020-09-28] MEDS: NICOTINE 14 MG/24 HR TRANSDERMAL TD SCH (08:46)
[2020-09-28] MEDS: risperiDONE 2 MG TAB PO SCH ×2 (08:46→21:00)
[2020-09-28 18:25] VITALS: BP 158/70
[2020-09-28] MEDS: hydrOXYzine 50 MG TAB PO PRN (21:11)
[2020-09-29 06:54] VITALS: BP 146/87
[2020-09-29] MEDS: NICOTINE 14 MG/24 HR TRANSDERMAL TD SCH (08:14)
[2020-09-29] MEDS: risperiDONE 2 MG TAB PO SCH ×2 (08:14→22:23)
[2020-09-29] MEDS: MULTIVITAMINS/MINERALS THERAP 1 TAB PO SCH (08:16)
[2020-09-29] MEDS: FLUTICASONE PROP 0.05% NASAL SPRAY 16 GM (FLONASE) NARES SCH ×2 (08:17→22:23)
--- NOTE | 2020-09-29 16:21 | MHIPNPDOC ---
[facility] Progress Note Progress Note DATE OF SERVICE: 09/29/20 HISTORY: Patient is a 25 -year-old Single, Unemployed, Undomiciled, , male, who reports getting in an argument with his father but denies making suicidal statement. He had reported that he missed a girlfriend with whom he no longer has contact as both sets of parents fought to keep them apart. He states that his ex-girlfriend's mother initiated an order of protection against him. Patient was very vague in his interview, he appears to be very obsessive about this past relationship and stated "She is the only one that really knew me.". VITAL SIGNS: See below. CURRENT MEDICATIONS: See below. MENTAL STATUS EXAMINATION: Patient is a 25 -year-old Single, Unemployed, Undomiciled, , male, who reports getting in an argument with his father but denies making suicidal statem ent. In today's interview, patient appears to have mild psychotic symptoms General Appearance: unkempt, disheveled, appears stated age Build: average Demeanor: mildly guarded but more engaged in interview today Eye Contact: maintained Activity: average Behavior: cooperative, pleasant Speech: normal rate, tone and volume Mood: euthymic Affect: mildly constricted Thought Process: logical/linear Thought Content (Delusions): Thought Content (Other): Thought Content (Aggressive): none reported Perception (Hallucinations): denies auditory Perception (Other): none reported Cognition (Impairment of): none reported Cognition(Intelligence Est.): other Oriented: Awake (Below average), Alert, Oriented x 3 Insight: fair Judgment: Fair Psychosis: Denies DIAGNOSES: Unspecified Psychotic Disorder r/o Unspecified Schizophrenia Disorder r/o Substance Induced psychotic disorder Rule out generalized anxiety disorder ASSESSMENT: Patient has been refusing Risperdal, he states that he does not like medications that make him feel disoriented or "down" Patient states that he is no longer depressed, mildly anxious as he wants to be discharged, staff is reporting that patient is not psychotic or delusional. Attending groups and walking in the milieu. Patient does not exhibit dangerous behaviors and although he has refused medications, he is demonstrating good insight and judgment in explaining his rationale for not taking medications. He is not observed with abnormal psychotic symptoms at this time. He is attending groups and is reportedly participating. Despite not talking medications, patient has not had anymore behavioral issues and has not needed emergency medications. MANAGEMENT PLAN: Continued medications and supportive therapy. Discharge adam rrow TIME SPENT: 45 minutes. Vital Signs Vital Signs Date Time Temp Pulse Resp B/P (MAP) Pulse Ox O2 Delivery O2 Flow Rate FiO2 09/29/20 06:54 97.1 72 16 146/87 (106) Room Air 09/28/20 06:45 99 Current Medications Current Medications Medications (Trade) Dose Ordered Sig/Conner Route PRN Reason Start Time Stop Time Status Last Admin Dose Admin Al Hydrox/Mg Hydrox/Simethicone (Mylanta) 30 ml Q4HP PRN PO HEARTBURN/INDIGESTION 09/23/20 16:35 Artificial Tears (Akwa Tears) 2 drop TIDP PRN OU DRY EYES 09/26/20 15:30 Diphenhydramine HCl (Benadryl) 50 mg STAT STAT IM 09/25/20 13:09 09/25/20 13:10 DC 09/25/20 13:19 Fluticasone Propionate (Flonase 0.05% Nasal [place]) 1 spray BID NARES 09/26/20 21:00 09/29/20 08:17 Haloperidol (Haldol) 10 mg STAT STAT IM 09/25/20 13:09 09/25/20 13:10 DC 09/25/20 13:19 Home Med (Home Med List Complete!) ASDIRECTED XX 09/22/20 21:45 09/22/20 21:44 DC Hydroxyzine HCl (Atarax) 50 mg Q6HP PRN PO ANXIETY 09/24/20 14:35 09/29/20 15:41 DC 09/28/20 21:11 Hydroxyzine HCl (Atarax) 100 mg Q6HP PRN PO ANXIETY 09/29/20 15:40 Ibuprofen (Advil) 400 mg Q6HP PRN PO MODERATE PAIN (PS 5-7) 09/23/20 16:35 Lorazepam (Ativan) 2 mg STAT STAT IM 09/25/20 13:09 09/25/20 13:10 DC 09/25/20 13:19 Magnesium Hydroxide (Milk Of Magnesia) 30 ml DAILYPRN PRN PO CONSTIPATION 09/23/20 16:35 Multivitamins (Theragram-M) 1 tab DAILY PO 09/27/20 09:00 09/29/20 08:16 Nicotine (Nicoderm Cq 14mg) 1 patch DAILY TD 09/24/20 09:00 Olanzapine (ZyPREXA ZYDIS) 5 mg Q6HP PRN PO AGITATION 09/24/20 14:35 Risperidone (RisperDAL) 2 mg BID PO 09/26/20 09:00 Risperidone (RisperDAL) 2 mg QHS PO 09/25/20 21:00 09/26/20 11:14 DC Trazodone HCl (Desyrel) 50 mg QHSP PRN PO INSOMNIA 09/23/20 16:35 09/29/20 15:41 DC 09/28/20 00:22 Allergies Coded Allergies: amoxicillin (Verified Allergy, Unknown, 08/22/20) cefuroxime (Verified Allergy, Unknown, 08/22/20) clavulanic acid (Verified Allergy, Unknown, 08/22/20) SIRISHA WALTERS NP Sep 29, 2020 16:06
[2020-09-29] MEDS ORDERED: HYDR50TA70 PO (16:24)
[2020-09-29] MEDS ORDERED: FLUTISP NARES (16:24)
[2020-09-29] MEDS ORDERED: NICO14PA TD (16:24)
[2020-09-29] MEDS ORDERED: POLYOPD OU (16:24)
[2020-09-29] MEDS ORDERED: VITMTA PO (16:24)
[2020-09-29 17:51] VITALS: BP 142/78
[2020-09-30 06:56] VITALS: BP 139/74
[2020-09-30] MEDS: MULTIVITAMINS/MINERALS THERAP 1 TAB PO SCH (09:00)
[2020-09-30] MEDS: NICOTINE 14 MG/24 HR TRANSDERMAL TD SCH (09:00)
[2020-09-30] MEDS: risperiDONE 2 MG TAB PO SCH (09:00)
[2020-09-30] MEDS: FLUTICASONE PROP 0.05% NASAL SPRAY 16 GM (FLONASE) NARES SCH ×2 (09:00→21:00)
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
[2020-09-30] MEDS: risperiDONE 3 MG TAB PO SCH (20:59)
[2020-09-30] MEDS: hydrOXYzine 50 MG TAB PO PRN (21:35)
[2020-10-01 07:05] VITALS: BP 112/68
[2020-10-01] MEDS: MULTIVITAMINS/MINERALS THERAP 1 TAB PO SCH (09:00)
[2020-10-01] MEDS: NICOTINE 14 MG/24 HR TRANSDERMAL TD SCH (09:00)
[2020-10-01] MEDS: FLUTICASONE PROP 0.05% NASAL SPRAY 16 GM (FLONASE) NARES SCH ×2 (09:00→21:38)
[2020-10-01] MEDS: risperiDONE 3 MG TAB PO SCH ×2 (09:00→21:00)
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
--- NOTE | 2020-10-01 14:37 | MHIPNPDOC ---
[facility] Progress Note Progress Note DATE OF SERVICE: 10/01/20 HISTORY: Per chart review patient has a history of psychotic symptoms and polysubstance abuse. Interval: Saw the patient in his room he was laughing to himself and looking around the room appear to be internally preoccupied, when asked about what he was thinking stated "your hair it is doing its thing" proceeded to speak in a disorganized pattern switching between topics, without a clear coherent or cohesive structure. VITAL SIGNS: See below. NEW TEST RESULTS: CURRENT MEDICATIONS: See below. MENTAL STATUS EXAMINATION: Patient is a 25-year old male, who is average build with blonde hair, long melendez, seen pacing the hallways, Speech: Is disorganized, nonspontaneous, decreased rate, decreased amount. Language skills are poor. Thought processes including: Disorganized, tangential. Thought content: Discusses random topics joining sentences together by clang associations. Abstract reasoning, and computation: Poor description of associations: Poor. Description of abnormal or psychotic thoughts: Internally preoccupied, disorganized, hallucinating. Judgment: Poor. Insight: Poor. Orientation: To person and place. Recent and remote memory: Unable to fully assess based on level disorganization on interview Attention span and concentration: Poor. Language: Persian. Fund of knowledge: Unable to assess. Mood: "Okay" Affect: Disorganized, internally preoccupied, inappropriate laughter DIAGNOSES: 1. Unspecified schizophrenia spectrum disorder, polysubstance abuse ASSESSMENT: Patient was seen briefly for 2 PC evaluation, clearly remains psychotic despite treatment and poses a danger to himself and others, as well as for self-care. MANAGEMENT PLAN: Completed paperwork, as 1 physician of 2 , patient requires extended stay for safety reasons and meets criteria for continued involuntary hospitalization. TIME SPENT: 15 minutes. Vital Signs Vital Signs Date Time Temp Pulse Resp B/P (MAP) Pulse Ox O2 Delivery O2 Flow Rate FiO2 10/01/20 07:05 98.5 73 16 112/68 (83) 99 Room Air Current Medications Current Medications Medications (Trade) Dose Ordered Sig/Conner Route PRN Reason Start Time Stop Time Status Last Admin Dose Admin Al Hydrox/Mg Hydrox/Simethicone (Mylanta) 30 ml Q4HP PRN PO HEARTBURN/INDIGESTION 09/23/20 16:35 Artificial Tears (Akwa Tears) 2 drop TIDP PRN OU DRY EYES 09/26/20 15:30 Diphenhydramine HCl (Benadryl) 50 mg STAT STAT IM 09/25/20 13:09 09/25/20 13:10 DC 09/25/20 13:19 Fluticasone Propionate (Flonase 0.05% Nasal [place]) 1 spray BID NARES 09/26/20 21:00 09/29/20 08:17 Haloperidol (Haldol) 10 mg STAT STAT IM 09/25/20 13:09 09/25/20 13:10 DC 09/25/20 13:19 Home Med (Home Med List Complete!) ASDIRECTED XX 09/22/20 21:45 09/22/20 21:44 DC Hydroxyzine HCl (Atarax) 50 mg Q6HP PRN PO ANXIETY 09/24/20 14:35 09/29/20 15:41 DC 09/28/20 21:11 Hydroxyzine HCl (Atarax) 100 mg Q6HP PRN PO ANXIETY 09/29/20 15:40 09/30/20 21:35 Ibuprofen (Advil) 400 mg Q6HP PRN PO MODERATE PAIN (PS 5-7) 09/23/20 16:35 Lorazepam (Ativan) 2 mg STAT STAT IM 09/25/20 13:09 09/25/20 13:10 DC 09/25/20 13:19 Magnesium Hydroxide (Milk Of Magnesia) 30 ml DAILYPRN PRN PO CONSTIPATION 09/23/20 16:35 Multivitamins (Theragram-M) 1 tab DAILY PO 09/27/20 09:00 09/29/20 08:16 Nicotine (Nicoderm Cq 14mg) 1 patch DAILY TD 09/24/20 09:00 Olanzapine (ZyPREXA ZYDIS) 5 mg Q6HP PRN PO AGITATION 09/24/20 14:35 Risperidone (RisperDAL) 2 mg BID PO 09/26/20 09:00 09/30/20 15:47 DC Risperidone (RisperDAL) 2 mg QHS PO 09/25/20 21:00 09/26/20 11:14 DC Risperidone (RisperDAL) 3 mg BID PO 09/30/20 21:00 Trazodone HCl (Desyrel) 50 mg QHSP PRN PO INSOMNIA 09/23/20 16:35 09/29/20 15:41 DC 09/28/20 00:22 Allergies Coded Allergies: amoxicillin (Verified Allergy, Unknown, 08/22/20) cefuroxime (Verified Allergy, Unknown, 08/22/20) clavulanic acid (Verified Allergy, Unknown, 08/22/20) LEEANNE PLUMMER MD Oct 01, 2020 14:36
[2020-10-01] MEDS: POLYVINYL ALCOHOL OPHTH SOLN 15 ML(LIQUITEARS) OU PRN (17:52)
[2020-10-01] MEDS: hydrOXYzine 50 MG TAB PO PRN (21:38)
[2020-10-02] MEDS: FLUTICASONE PROP 0.05% NASAL SPRAY 16 GM (FLONASE) NARES SCH ×2 (08:04→21:00)
[2020-10-02] MEDS: MULTIVITAMINS/MINERALS THERAP 1 TAB PO SCH (08:04)
[2020-10-02] MEDS: POLYVINYL ALCOHOL OPHTH SOLN 15 ML(LIQUITEARS) OU PRN (08:05)
[2020-10-02] MEDS: NICOTINE 14 MG/24 HR TRANSDERMAL TD SCH (08:05)
[2020-10-02] MEDS: risperiDONE 3 MG TAB PO SCH ×3 (08:05→21:00)
[2020-10-02 08:38] VITALS: BP 112/68
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
[2020-10-02 18:29] VITALS: BP 144/80
[2020-10-03] MEDS: risperiDONE 3 MG TAB PO SCH (09:00)
[2020-10-03] MEDS ORDERED: OLANZapine 5 MG TAB PO SCH (09:00)
[2020-10-03] MEDS: MULTIVITAMINS/MINERALS THERAP 1 TAB PO SCH (09:00)
[2020-10-03] MEDS: FLUTICASONE PROP 0.05% NASAL SPRAY 16 GM (FLONASE) NARES SCH ×3 (09:00→21:18)
[2020-10-03] MEDS: NICOTINE 14 MG/24 HR TRANSDERMAL TD SCH (09:00)
[2020-10-03] MEDS: POLYVINYL ALCOHOL OPHTH SOLN 15 ML(LIQUITEARS) OU PRN ×2 (10:28→19:49)
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
[2020-10-04 06:32] VITALS: BP 119/64
[2020-10-04] MEDS: MULTIVITAMINS/MINERALS THERAP 1 TAB PO SCH (09:00)
[2020-10-04] MEDS: NICOTINE 14 MG/24 HR TRANSDERMAL TD SCH ×2 (09:00→20:51)
[2020-10-04] MEDS: OLANZapine 5 MG TAB PO SCH ×2 (09:00→20:51)
[2020-10-04] MEDS: POLYVINYL ALCOHOL OPHTH SOLN 15 ML(LIQUITEARS) OU PRN ×2 (09:31→17:43)
[2020-10-04] MEDS: FLUTICASONE PROP 0.05% NASAL SPRAY 16 GM (FLONASE) NARES SCH ×2 (09:31→20:47)
[2020-10-05 07:36] VITALS: BP 128/64
[2020-10-05] MEDS: MULTIVITAMINS/MINERALS THERAP 1 TAB PO SCH (08:41)
[2020-10-05] MEDS: OLANZapine 5 MG TAB PO SCH ×2 (08:41→21:00)
[2020-10-05] MEDS: FLUTICASONE PROP 0.05% NASAL SPRAY 16 GM (FLONASE) NARES SCH ×2 (08:41→21:00)
[2020-10-05] MEDS ORDERED: LORazepam 2 MG/ML VIAL IM STA (10:18)
[2020-10-05] MEDS ORDERED: HALOPERIDOL 5MG/ML VIAL (J1630 PER 1) IM STA (10:18)
[2020-10-05] MEDS ORDERED: diphenhydrAMINE 50MG/ML VIAL (J1200) IM STA (10:18)
--- NOTE | 2020-10-05 10:34 | MHIR ---
General Date: Oct 05, 2020 Time Initiated: 10:20 Restraint Documentation Order/Evaluation FACE TO FACE: Yes. PHYSICIAN ASSESSMENT: Patient was extremely psychotic and agitated, becoming aggressive towards staff, required restraint and sedation for safety of himself and others. REASON FOR RESTRAINT: Patient poses imminent danger of harming self or others: Threatening staff, attempting to hit staff, running around unit attempting to escape. DE-ESCALATION INTERVENTIONS ATTEMPTED BEFORE USE OF RESTRAINTS: Verbal de- escalation attempted, patient was prompted to isolate self to reduce stimulation but did not want to comply Mechanical and chemical RESTRAINTS USED: Four-point restraints; IM medications: Haldol 10 mg, Ativan 2 mg, Benadryl 50 mg LENGTH OF TIME ORDERED IN RESTRAINTS: 240 minutes. WHEN TO DISCONTINUE RESTRAINTS: When the patient is no longer a threat to themselves or others. Post evaluation of restraint due in 24 hours. BOBO RUBIN MD Oct 05, 2020 10:33
[2020-10-05 10:45] VITALS: BP 150/65
[2020-10-05 11:30] VITALS: BP 128/64
--- NOTE | 2020-10-05 12:50 | IPNPDOC ---
Date Seen The patient was seen on 10/05/20. Progress Note SUBJECTIVE: Code 25 was called due to patient combativeness and aggressive behavior. Per RN patient was asked to surrender his cell phone but he was evasive and started to run around in the unit. He could not be redirected. Patient has been given IV Haldol Benadryl and Ativan and cannot provide any review of system. OBJECTIVE PHYSICAL EXAMINATION:( [facility] sitter and 2 [facility] RN present during the examinatio n.) VITAL SIGNS: Please see below. GENERAL: Sedated no respiratory distress HEENT: No cervical lymphadenopathy No thyromegaly CARDIOVASCULAR: S1-S2 regular rate rhythm RESPIRATORY: Clear to auscultation no wheezing or rales ABDOMINAL: Positive bowel sounds soft nontender nondistended EXTREMITIES: No cyanosis clubbing or pitting edema NEUROLOGICAL: Sedated LABORATORY DATA, IMAGING STUDIES, MICROBIOLOGY: Please see below. ASSESSMENT AND PLAN: 25-year-old male with combativeness and aggressive behavior sedated and manually restrained Due to interference with medical treatment and presented with physical danger to himself and others. Redirection was unsuccessful. Psychiatrist provided chemical restraints. Patient is currently sedated and unable to provide review of system. I have instructed the [facility] RN and sitter at the bedside To call a medical provider once the patient is awake and complains of medical symptoms. Hospitalist will sign off please reconsult for acute medical issues VS, I&O, 24H, Fishbone Vital Signs/I&O Vital Signs Date Time Temp Pulse Resp B/P (MAP) Pulse Ox O2 Delivery O2 Flow Rate FiO2 10/05/20 12:00 Room Air 10/05/20 11:[address] MD Oct 05, 2020 12:50
--- NOTE | 2020-10-05 14:38 | MHPR ---
General Date: Oct 05, 2020 Time: 14:00 Post-Restraint Evaluation THE OUTCOME OF THE RESTRAINT: Patient was able to calm down with IM medication. EFFECTIVENESS OF THE RESTRAINT: Mechanical and/or chemical: Positive ANY EVIDENCE THAT THE PATIENT WAS AFFECTED EMOTIONALLY: None at this time. ANY NEED FOR COUNSELING/ASSISTANCE: None recommended. CHANGES IN TREATMENT PLAN: Consider utilizing Haldol as as needed medication if patient will accept RECOMMENDATIONS FOR FUTURE INCIDENTS: Would recommend same course of IM medications (2 mg of Haldol, 2 mg Ativan, 5 mg Benadryl) patient appears not to respond well to verbal de-escalation at this time due to severity of his psychosis. As much as possible may consider attempting to keep patient separate from milieu, at this time one-to-one IS NOT recommended. BOBO RUBIN MD Oct 05, 2020 10:33
[2020-10-05] MEDS: hydrOXYzine 50 MG TAB PO PRN (17:47)
[2020-10-05] MEDS: POLYVINYL ALCOHOL OPHTH SOLN 15 ML(LIQUITEARS) OU PRN (17:51)
[2020-10-06] MEDS: MULTIVITAMINS/MINERALS THERAP 1 TAB PO SCH (09:22)
[2020-10-06] MEDS: NICOTINE 14 MG/24 HR TRANSDERMAL TD SCH ×2 (09:22→18:33)
[2020-10-06] MEDS: OLANZapine 5 MG TAB PO SCH ×2 (09:22→20:56)
[2020-10-06] MEDS: FLUTICASONE PROP 0.05% NASAL SPRAY 16 GM (FLONASE) NARES SCH ×2 (09:22→20:56)
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
[2020-10-06] MEDS: POLYVINYL ALCOHOL OPHTH SOLN 15 ML(LIQUITEARS) OU PRN (15:14)
--- NOTE | 2020-10-06 17:36 | MHIPNPDOC ---
[facility] Progress Note Progress Note DATE OF SERVICE: 10/06/20 HISTORY: 25-year-old male admitted for disorganized thought processes and dangerous behavior towards self. Александр was more appropriate today although continues to be disorganized and mildly tangential/ He stated today that was restrained due to his running with his phone. He made minimal delusional statements today and was minimal in his reponses VITAL SIGNS: See below. NEW TEST RESULTS: None to report. CURRENT MEDICATIONS: See below. MENTAL STATUS EXAMINATION: Patient is a 25-year old male, who is dressed in hospital clothing, was shivering Speech: minimal responses, spontaneous, normal volume. Language skills are intact. Thought processes including: Disorganized. Thought content: As described in HPI. Abstract reasoning, and computation: Unable to abstract. Description of associations: Loose. Description of abnormal or psychotic thoughts: minimal delusional statements Judgment: Poor. Insight: Poor. Orientation: X3. Recent and remote memory: Appeared intact. Attention span and concentration: Intact. Language: Intact. Mood: "I am good". Affect: constricted ASSESSMENT:Patient is mildly disorganized and makes random odd statements. Observed staring at allen for several minutes. He states in the interview, "I need a green shirt." When asked about this green shirt, he shrugs his shoulders and says I think it will help me. Patient is shivering and asked if his green shirt is to help him keep warm, he denies this and does not elaborate. Patient is less irritable in his demeanor and states that he is taking Zyprexa today. Reinforced with patient that he must take medications consistently and improve for discharge. He is in agreement to stay compliant with medications PLAN and Treatment: Continue all medications and supportive therapy. Will discharge when stable. TIME SPENT: 25 minutes. Vital Signs Vital Signs Date Time Temp Pulse Resp B/P (MAP) Pulse Ox O2 Delivery O2 Flow Rate FiO2 10/05/20 13:15 Room Air 10/05/20 11:30 Current Medications Current Medications Medications (Trade) Dose Ordered Sig/Conner Route PRN Reason Start Time Stop Time Status Last Admin Dose Admin Al Hydrox/Mg Hydrox/Simethicone (Mylanta) 30 ml Q4HP PRN PO HEARTBURN/INDIGESTION 09/23/20 16:35 Artificial Tears (Akwa Tears) 2 drop TIDP PRN OU DRY EYES 09/26/20 15:30 10/05/20 17:51 Diphenhydramine HCl (Benadryl) 50 mg STAT STAT IM 09/25/20 13:09 09/25/20 13:10 DC 09/25/20 13:19 Diphenhydramine HCl (Benadryl) 50 mg STAT STAT IM 10/05/20 10:18 10/05/20 10:21 DC 10/05/20 10:25 Fluticasone Propionate (Flonase 0.05% Nasal [place]) 1 spray BID NARES 09/26/20 21:00 10/06/20 09:22 Haloperidol (Haldol) 10 mg STAT STAT IM 09/25/20 13:09 09/25/20 13:10 DC 09/25/20 13:19 Haloperidol (Haldol) 10 mg STAT STAT IM 10/05/20 10:18 10/05/20 10:21 DC 10/05/20 10:25 Home Med (Home Med List Complete!) ASDIRECTED XX 09/22/20 21:45 09/22/20 21:44 DC Hydroxyzine HCl (Atarax) 50 mg Q6HP PRN PO ANXIETY 09/24/20 14:35 09/29/20 15:41 DC 09/28/20 21:11 Hydroxyzine HCl (Atarax) 100 mg Q6HP PRN PO ANXIETY 09/29/20 15:40 10/05/20 17:47 Ibuprofen (Advil) 400 mg Q6HP PRN PO MODERATE PAIN (PS 5-7) 09/23/20 16:35 Lorazepam (Ativan) 2 mg STAT STAT IM 09/25/20 13:09 09/25/20 13:10 DC 09/25/20 13:19 Lorazepam (Ativan) 2 mg STAT STAT IM 10/05/20 10:18 10/05/20 10:21 DC 10/05/20 10:25 Magnesium Hydroxide (Milk Of Magnesia) 30 ml DAILYPRN PRN PO CONSTIPATION 09/23/20 16:35 Multivitamins (Theragram-M) 1 tab DAILY PO 09/27/20 09:00 10/06/20 09:22 Nicotine (Nicoderm Cq 14mg) 1 patch DAILY TD 09/24/20 09:00 10/06/20 09:22 Olanzapine (ZyPREXA ZYDIS) 5 mg Q6HP PRN PO AGITATION 09/24/20 14:35 Olanzapine (ZyPREXA) 5 mg BID PO 10/03/20 09:00 10/03/20 09:29 DC Olanzapine (ZyPREXA) 5 mg BID PO 10/04/20 09:00 10/06/20 09:22 Risperidone (RisperDAL) 2 mg BID PO 09/26/20 09:00 09/30/20 15:47 DC Risperidone (RisperDAL) 2 mg QHS PO 09/25/20 21:00 09/26/20 11:14 DC Risperidone (RisperDAL) 3 mg BID PO 09/30/20 21:00 10/03/20 09:28 DC 10/02/20 09:44 Trazodone HCl (Desyrel) 50 mg QHSP PRN PO INSOMNIA 09/23/20 16:35 09/29/20 15:41 DC 09/28/20 00:22 Allergies Coded Allergies: amoxicillin (Verified Allergy, Unknown, 08/22/20) cefuroxime (Verified Allergy, Unknown, 08/22/20) clavulanic acid (Verified Allergy, Unknown, 08/22/20) SIRISHA WALTERS NP Oct 06, 2020 11:21
[2020-10-06] MEDS: OLANZapine ORAL DISINTEGRATING TAB 5MG PO PRN (18:35)
[2020-10-06] MEDS: hydrOXYzine 50 MG TAB PO PRN (18:35)
[2020-10-06] MEDS: IBUPROFEN 400MG TAB PO PRN (21:09)
[2020-10-07] MEDS: OLANZapine 5 MG TAB PO SCH ×2 (08:36→20:10)
[2020-10-07] MEDS: FLUTICASONE PROP 0.05% NASAL SPRAY 16 GM (FLONASE) NARES SCH ×2 (08:36→20:09)
[2020-10-07] MEDS: NICOTINE 14 MG/24 HR TRANSDERMAL TD SCH (08:36)
[2020-10-07] MEDS: MULTIVITAMINS/MINERALS THERAP 1 TAB PO SCH (08:37)
[2020-10-07] MEDS: POLYVINYL ALCOHOL OPHTH SOLN 15 ML(LIQUITEARS) OU PRN ×2 (08:48→18:00)
[2020-10-07] MEDS: hydrOXYzine 50 MG TAB PO PRN ×2 (09:37→21:20)
[2020-10-07] MEDS: OLANZapine ORAL DISINTEGRATING TAB 5MG PO PRN ×3 (09:37→21:20)
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
[2020-10-07 18:28] VITALS: BP 141/63
[2020-10-07] MEDS: traZODone 50 MG TAB PO PRN (20:10)
[2020-10-07] MEDS: IBUPROFEN 400MG TAB PO PRN (21:21)
[2020-10-08 07:19] VITALS: BP 140/90
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
[2020-10-08] MEDS: OLANZapine 5 MG TAB PO SCH ×2 (09:30→20:05)
[2020-10-08] MEDS: NICOTINE 14 MG/24 HR TRANSDERMAL TD SCH (09:30)
[2020-10-08] MEDS: MULTIVITAMINS/MINERALS THERAP 1 TAB PO SCH (09:30)
[2020-10-08] MEDS: FLUTICASONE PROP 0.05% NASAL SPRAY 16 GM (FLONASE) NARES SCH ×2 (09:30→20:05)
[2020-10-08] MEDS: POLYVINYL ALCOHOL OPHTH SOLN 15 ML(LIQUITEARS) OU PRN (11:19)
[2020-10-08] MEDS: IBUPROFEN 400MG TAB PO PRN ×2 (11:43→18:20)
[2020-10-08] MEDS: OLANZapine ORAL DISINTEGRATING TAB 5MG PO PRN ×2 (12:44→21:05)
[2020-10-08 18:12] VITALS: BP 145/77
[2020-10-08] MEDS: traZODone 50 MG TAB PO PRN (20:05)
[2020-10-09] MEDS: OLANZapine 5 MG TAB PO SCH (08:53)
[2020-10-09] MEDS: POLYVINYL ALCOHOL OPHTH SOLN 15 ML(LIQUITEARS) OU PRN ×2 (09:00→19:53)
[2020-10-09] MEDS: FLUTICASONE PROP 0.05% NASAL SPRAY 16 GM (FLONASE) NARES SCH ×2 (09:00→19:53)
[2020-10-09] MEDS: MULTIVITAMINS/MINERALS THERAP 1 TAB PO SCH (09:01)
[2020-10-09] MEDS: NICOTINE 14 MG/24 HR TRANSDERMAL TD SCH (09:01)
[2020-10-09 17:20] VITALS: BP 128/68
[2020-10-09] MEDS: traZODone 50 MG TAB PO PRN (19:53)
[2020-10-09] MEDS: IBUPROFEN 400MG TAB PO PRN (19:53)
[2020-10-09] MEDS: QUEtiapine FUMARATE 50MG TAB PO SCH (19:53)
--- NOTE | 2020-10-09 21:39 | MHIPN ---
[facility] PROGRESS NOTE DATE: 10/09/2020 SUBJECTIVE: "I don't want to take Zyprexa, I have side effects from it, I have difficulty breathing." OBJECTIVE: He is a 25-year-old male, unemployed, who was admitted after he had an argument with his father, he made some suicidal statement. His stressors are a breakup with his girlfriend. This is his first psychiatric hospitalization in [facility]. He reports he was on treatment in the past for depression with Remeron, it helped him in the past. Currently, patient is still depressed, somewhat isolative. Agreed for change in medications, agreed to take Seroquel. MENTAL STATUS EXAMINATION: Casually dressed with clean clothes. Cooperative, made good eye contact. Speech low tone, soft. Thought process linear, goal-directed, few words. Thought content: Denied any suicidal thoughts, denied any homicidal ideas. Insight and judgment are limited. Memory immediate, remote, recent are good. VITAL SIGNS: Temperature of 97.3, pulse is 76, respiratory rate is 18, pulse oximetry is 99, blood pressure is 145/77. DIAGNOSES: Unspecified psychotic disorder. Methamphetamine use disorder. PLAN: Is to: Discontinue Zyprexa. Place him on Seroquel 50 mg at night, titrate the dose. Estimated length of stay: 4-5 days. Time spent is 25 minutes.
[2020-10-10 05:41] VITALS: BP 143/70
[2020-10-10] MEDS: MULTIVITAMINS/MINERALS THERAP 1 TAB PO SCH (08:17)
[2020-10-10] MEDS: FLUTICASONE PROP 0.05% NASAL SPRAY 16 GM (FLONASE) NARES SCH ×2 (08:17→20:01)
[2020-10-10] MEDS: NICOTINE 14 MG/24 HR TRANSDERMAL TD SCH (08:17)
[2020-10-10] MEDS: POLYVINYL ALCOHOL OPHTH SOLN 15 ML(LIQUITEARS) OU PRN (11:00)
--- NOTE | 2020-10-10 14:12 | MHIPNPDOC ---
[facility] Progress Note Progress Note DATE OF SERVICE: 10/10/20 SUBJECTIVE: " I have no side effects from Seroquel, but I have anxiety, hydroxyzine did not help me, agreed to take gabapentin. OBJECTIVE: He is a 25-year-old male, unemployed, who was admitted after he had an argument with his father, he made some suicidal statement. His stressors are a breakup with his girlfriend. This is his first psychiatric hospitalization in [facility]. He reports he was on treatment in the past for depression with Remeron, it helped him in the past. Currently, patient is still depressed, somewhat isolative. Agreed for change in medications, agreed to take Seroquel. Patient is ambulatory, attending groups and interacting with the peers , complains of anxiety MENTAL STATUS EXAMINATION: Casually dressed with clean clothes. Cooperative, made good eye contact. Speech normal, soft. Thought process linear, goal-directed, few words. Thought content: Denied any suicidal thoughts, denied any homicidal ideas. Insight and judgment are fair. Memory immediate, remote, recent are good. DIAGNOSES: Unspecified psychotic disorder. Methamphetamine use disorder. PLAN -continue Seroquel 50 mg at night, add gabapentin 100 mg 3 times daily. Estimated length of stay: 4-5 days. Time spent is 25 minutes. Vital Signs Vital Signs Date Time Temp Pulse Resp B/P (MAP) Pulse Ox O2 Delivery O2 Flow Rate FiO2 10/10/20 05:41 98.1 61 20 143/70 (94) 98 Room Air Current Medications Current Medications Medications (Trade) Dose Ordered Sig/Conner Route PRN Reason Start Time Stop Time Status Last Admin Dose Admin Al Hydrox/Mg Hydrox/Simethicone (Mylanta) 30 ml Q4HP PRN PO HEARTBURN/INDIGESTION 09/23/20 16:35 Artificial Tears (Akwa Tears) 2 drop TIDP PRN OU DRY EYES 09/26/20 15:30 10/10/20 11:00 Diphenhydramine HCl (Benadryl) 50 mg STAT STAT IM 09/25/20 13:09 09/25/20 13:10 DC 09/25/20 13:19 Diphenhydramine HCl (Benadryl) 50 mg STAT STAT IM 10/05/20 10:18 10/05/20 10:21 DC 10/05/20 10:25 Fluticasone Propionate (Flonase 0.05% Nasal [place]) 1 spray BID NARES 09/26/20 21:00 10/10/20 08:17 Gabapentin (Neurontin) 100 mg TID PO 10/10/20 16:00 UNV Haloperidol (Haldol) 10 mg STAT STAT IM 09/25/20 13:09 09/25/20 13:10 DC 09/25/20 13:19 Haloperidol (Haldol) 10 mg STAT STAT IM 10/05/20 10:18 10/05/20 10:21 DC 10/05/20 10:25 Home Med (Home Med List Complete!) ASDIRECTED XX 09/22/20 21:45 09/22/20 21:44 DC Hydroxyzine HCl (Atarax) 50 mg Q6HP PRN PO ANXIETY 09/24/20 14:35 09/29/20 15:41 DC 09/28/20 21:11 Hydroxyzine HCl (Atarax) 100 mg Q6HP PRN PO ANXIETY 09/29/20 15:40 10/08/20 07:26 DC 10/07/20 21:20 Ibuprofen (Advil) 400 mg Q6HP PRN PO MODERATE PAIN (PS 5-7) 09/23/20 16:35 10/09/20 19:53 Lorazepam (Ativan) 2 mg STAT STAT IM 09/25/20 13:09 09/25/20 13:10 DC 09/25/20 13:19 Lorazepam (Ativan) 2 mg STAT STAT IM 10/05/20 10:18 10/05/20 10:21 DC 10/05/20 10:25 Magnesium Hydroxide (Milk Of Magnesia) 30 ml DAILYPRN PRN PO CONSTIPATION 09/23/20 16:35 Multivitamins (Theragram-M) 1 tab DAILY PO 09/27/20 09:00 10/10/20 08:17 Nicotine (Nicoderm Cq 14mg) 1 patch DAILY TD 09/24/20 09:00 10/10/20 08:17 Olanzapine (ZyPREXA ZYDIS) 5 mg Q6HP PRN PO AGITATION 09/24/20 14:35 10/08/20 21:05 Olanzapine (ZyPREXA) 5 mg BID PO 10/03/20 09:00 10/03/20 09:29 DC Olanzapine (ZyPREXA) 5 mg BID PO 10/04/20 09:00 10/09/20 16:11 DC 10/08/20 20:05 Quetiapine Fumarate (SEROquel) 50 mg QHS PO 10/09/20 21:00 10/09/20 19:53 Risperidone (RisperDAL) 2 mg BID PO 09/26/20 09:00 09/30/20 15:47 DC Risperidone (RisperDAL) 2 mg QHS PO 09/25/20 21:00 09/26/20 11:14 DC Risperidone (RisperDAL) 3 mg BID PO 09/30/20 21:00 10/03/20 09:28 DC 10/02/20 09:44 Trazodone HCl (Desyrel) 50 mg QHSP PRN PO INSOMNIA 09/23/20 16:35 09/29/20 15:41 DC 09/28/20 00:22 Trazodone HCl (Desyrel) 50 mg QHSP PRN PO INSOMNIA 10/07/20 09:00 10/09/20 19:53 Allergies Coded Allergies: amoxicillin (Verified Allergy, Unknown, 08/22/20) cefuroxime (Verified Allergy, Unknown, 08/22/20) clavulanic acid (Verified Allergy, Unknown, 08/22/20) UMESH KOEHLER MD Oct 10, 2020 14:12
[2020-10-10] MEDS: GABAPENTIN 100 MG CAP PO SCH ×2 (15:27→20:00)
[2020-10-10] MEDS: IBUPROFEN 400MG TAB PO PRN (15:28)
[2020-10-10 18:24] VITALS: BP 138/88
[2020-10-10] MEDS: traZODone 50 MG TAB PO PRN (20:00)
[2020-10-10] MEDS: QUEtiapine FUMARATE 50MG TAB PO SCH (20:00)
[2020-10-11] MEDS: POLYVINYL ALCOHOL OPHTH SOLN 15 ML(LIQUITEARS) OU PRN (07:52)
[2020-10-11] MEDS: OLANZapine ORAL DISINTEGRATING TAB 5MG PO PRN (07:54)
[2020-10-11] MEDS: FLUTICASONE PROP 0.05% NASAL SPRAY 16 GM (FLONASE) NARES SCH ×2 (08:02→19:46)
[2020-10-11] MEDS: GABAPENTIN 100 MG CAP PO SCH ×3 (08:03→19:46)
[2020-10-11] MEDS: NICOTINE 14 MG/24 HR TRANSDERMAL TD SCH (08:03)
[2020-10-11] MEDS: MULTIVITAMINS/MINERALS THERAP 1 TAB PO SCH (08:03)
[2020-10-11 16:27] VITALS: BP 146/87
[2020-10-11] MEDS: QUEtiapine FUMARATE 50MG TAB PO SCH (19:46)
[2020-10-11] MEDS: traZODone 50 MG TAB PO PRN (19:46)
[2020-10-12] MEDS: IBUPROFEN 400MG TAB PO PRN (00:09)
[2020-10-12 06:36] VITALS: BP 117/57
[2020-10-12] MEDS: GABAPENTIN 100 MG CAP PO SCH ×3 (08:13→20:22)
[2020-10-12] MEDS: POLYVINYL ALCOHOL OPHTH SOLN 15 ML(LIQUITEARS) OU PRN (08:13)
[2020-10-12] MEDS: NICOTINE 14 MG/24 HR TRANSDERMAL TD SCH (08:13)
[2020-10-12] MEDS: OLANZapine ORAL DISINTEGRATING TAB 5MG PO PRN (08:13)
[2020-10-12] MEDS: FLUTICASONE PROP 0.05% NASAL SPRAY 16 GM (FLONASE) NARES SCH ×2 (08:13→20:22)
[2020-10-12] MEDS: MULTIVITAMINS/MINERALS THERAP 1 TAB PO SCH (08:13)
[2020-10-12 19:11] VITALS: BP 135/79
[2020-10-12] MEDS: QUEtiapine FUMARATE 50MG TAB PO SCH (20:22)
[2020-10-12] MEDS: traZODone 50 MG TAB PO PRN (20:23)
[2020-10-13 06:27] VITALS: BP 118/72
[2020-10-13] MEDS: NICOTINE 14 MG/24 HR TRANSDERMAL TD SCH (08:41)
[2020-10-13] MEDS: FLUTICASONE PROP 0.05% NASAL SPRAY 16 GM (FLONASE) NARES SCH ×2 (08:42→20:02)
[2020-10-13] MEDS: MULTIVITAMINS/MINERALS THERAP 1 TAB PO SCH (08:43)
[2020-10-13] MEDS: GABAPENTIN 100 MG CAP PO SCH (08:43)
--- NOTE | 2020-10-13 11:16 | MHIPNPDOC ---
[facility] Progress Note Progress Note DATE OF SERVICE: 10/13/20 SUBJECTIVE: " I still have anxiety, I used to take higher dose of gabapentin, still I have some fluctuation of mood." OBJECTIVE: He is a 25-year-old male, unemployed, who was admitted after he had an argument with his father, he made some suicidal statement. His stressors are a breakup with his girlfriend. This is his first psychiatric hospitalization in [facility]. He reports he was on treatment in the past for depression with Remeron, it helped him in the past. Currently, patient is still depressed, somewhat isolative. Agreed for change in medications, agreed to take Seroquel. Complains of anxiety, and some mood swings, otherwise patient is doing well interacting with peers and staff. Denies any side effects from the medications. MENTAL STATUS EXAMINATION: Casually dressed with clean clothes. Cooperative, made good eye contact. Speech normal, soft. Thought process linear, goal-directed, few words. Thought content: Denied any suicidal thoughts, denied any homicidal ideas. Insight and judgment are fair. Memory immediate, remote, recent are good. DIAGNOSES: Unspecified psychotic disorder. Methamphetamine use disorder. PLAN -increase Seroquel 100 mg at night, increase gabapentin 300 mg 3 times daily, add doxepin 25 mg at night, discontinue trazodone. Estimated length of stay: 4-5 days. Time spent is 25 minutes. Vital Signs Vital Signs Date Time Temp Pulse Resp B/P (MAP) Pulse Ox O2 Delivery O2 Flow Rate FiO2 10/13/20 06:27 98.1 76 16 118/72 (87) 100 Room Air Current Medications Current Medications Medications (Trade) Dose Ordered Sig/Conner Route PRN Reason Start Time Stop Time Status Last Admin Dose Admin Al Hydrox/Mg Hydrox/Simethicone (Mylanta) 30 ml Q4HP PRN PO HEARTBURN/INDIGESTION 09/23/20 16:35 Artificial Tears (Akwa Tears) 2 drop TIDP PRN OU DRY EYES 09/26/20 15:30 10/12/20 08:13 Diphenhydramine HCl (Benadryl) 50 mg STAT STAT IM 09/25/20 13:09 09/25/20 13:10 DC 09/25/20 13:19 Diphenhydramine HCl (Benadryl) 50 mg STAT STAT IM 10/05/20 10:18 10/05/20 10:21 DC 10/05/20 10:25 Doxepin HCl (SINEquan) 25 mg QHS PO 10/13/20 21:00 Fluticasone Propionate (Flonase 0.05% Nasal [place]) 1 spray BID NARES 09/26/20 21:00 10/13/20 08:42 Gabapentin (Neurontin) 100 mg TID PO 10/10/20 16:00 10/13/20 10:05 DC 10/13/20 08:43 Gabapentin (Neurontin) 300 mg TID PO 10/13/20 16:00 Haloperidol (Haldol) 10 mg STAT STAT IM 09/25/20 13:09 09/25/20 13:10 DC 09/25/20 13:19 Haloperidol (Haldol) 10 mg STAT STAT IM 10/05/20 10:18 10/05/20 10:21 DC 10/05/20 10:25 Home Med (Home Med List Complete!) ASDIRECTED XX 09/22/20 21:45 09/22/20 21:44 DC Hydroxyzine HCl (Atarax) 50 mg Q6HP PRN PO ANXIETY 09/24/20 14:35 09/29/20 15:41 DC 09/28/20 21:11 Hydroxyzine HCl (Atarax) 100 mg Q6HP PRN PO ANXIETY 09/29/20 15:40 10/08/20 07:26 DC 10/07/20 21:20 Ibuprofen (Advil) 400 mg Q6HP PRN PO MODERATE PAIN (PS 5-7) 09/23/20 16:35 10/12/20 00:09 Lorazepam (Ativan) 2 mg STAT STAT IM 09/25/20 13:09 09/25/20 13:10 DC 09/25/20 13:19 Lorazepam (Ativan) 2 mg STAT STAT IM 10/05/20 10:18 10/05/20 10:21 DC 10/05/20 10:25 Magnesium Hydroxide (Milk Of Magnesia) 30 ml DAILYPRN PRN PO CONSTIPATION 09/23/20 16:35 Multivitamins (Theragram-M) 1 tab DAILY PO 09/27/20 09:00 10/13/20 08:43 Nicotine (Nicoderm Cq 14mg) 1 patch DAILY TD 09/24/20 09:00 10/12/20 08:13 Olanzapine (ZyPREXA ZYDIS) 5 mg Q6HP PRN PO AGITATION 09/24/20 14:35 10/12/20 08:13 Olanzapine (ZyPREXA) 5 mg BID PO 10/03/20 09:00 10/03/20 09:29 DC Olanzapine (ZyPREXA) 5 mg BID PO 10/04/20 09:00 10/09/20 16:11 DC 10/08/20 20:05 Quetiapine Fumarate (SEROquel) 50 mg QHS PO 10/09/20 21:00 10/13/20 10:04 DC 10/12/20 20:22 Quetiapine Fumarate (SEROquel) 100 mg QHS PO 10/13/20 21:00 Risperidone (RisperDAL) 2 mg BID PO 09/26/20 09:00 09/30/20 15:47 DC Risperidone (RisperDAL) 2 mg QHS PO 09/25/20 21:00 09/26/20 11:14 DC Risperidone (RisperDAL) 3 mg BID PO 09/30/20 21:00 10/03/20 09:28 DC 10/02/20 09:44 Trazodone HCl (Desyrel) 50 mg QHSP PRN PO INSOMNIA 09/23/20 16:35 09/29/20 15:41 DC 09/28/20 00:22 Trazodone HCl (Desyrel) 50 mg QHSP PRN PO INSOMNIA 10/07/20 09:00 10/13/20 10:04 DC 10/12/20 20:23 Allergies Coded Allergies: amoxicillin (Verified Allergy, Unknown, 08/22/20) cefuroxime (Verified Allergy, Unknown, 08/22/20) clavulanic acid (Verified Allergy, Unknown, 08/22/20) UMESH KOEHLER MD Oct 13, 2020 11:16
[2020-10-13] MEDS: POLYVINYL ALCOHOL OPHTH SOLN 15 ML(LIQUITEARS) OU PRN (13:32)
[2020-10-13] MEDS: GABAPENTIN 300 MG CAP PO SCH ×2 (15:04→20:02)
[2020-10-13 16:35] VITALS: BP 135/61
[2020-10-13] MEDS: DOXEPIN 25 MG CAP PO SCH (20:02)
[2020-10-13] MEDS: QUEtiapine FUMARATE 100 MG TAB PO SCH (20:02)
[2020-10-14 05:54] VITALS: BP 116/65
[2020-10-14] MEDS: MULTIVITAMINS/MINERALS THERAP 1 TAB PO SCH (08:18)
[2020-10-14] MEDS: GABAPENTIN 300 MG CAP PO SCH ×3 (08:18→20:36)
[2020-10-14] MEDS: FLUTICASONE PROP 0.05% NASAL SPRAY 16 GM (FLONASE) NARES SCH ×2 (08:18→20:36)
[2020-10-14] MEDS: NICOTINE 14 MG/24 HR TRANSDERMAL TD SCH (08:20)
[2020-10-14] MEDS: POLYVINYL ALCOHOL OPHTH SOLN 15 ML(LIQUITEARS) OU PRN ×2 (11:50→20:36)
--- NOTE | 2020-10-14 15:03 | MHIPNPDOC ---
[facility] Progress Note Progress Note DATE OF SERVICE: 10/14/20 SUBJECTIVE: " I am feeling better I do not have any twitches, I have some floaters in my eyes, I think it is due to my past drug use." OBJECTIVE: He is a 25-year-old male, unemployed, who was admitted after he had an argument with his father, he made some suicidal statement. His stressors are a breakup with his girlfriend. This is his first psychiatric hospitalization in [facility]. He reports he was on treatment in the past for depression with Remeron, it helped him in the past. Currently, patient is still depressed, somewhat isolative. Agreed for change in medications, agreed to take Seroquel. Complains of anxiety, and some mood swings, otherwise patient is doing well interacting with peers and staff. Denies any side effects from the medications. MENTAL STATUS EXAMINATION: Casually dressed with clean clothes. Cooperative, made good eye contact. Speech normal, soft. Thought process linear, goal-directed, few words. Thought content: Denied any suicidal thoughts, denied any homicidal ideas. Insight and judgment are fair. Memory immediate, remote, recent are good. DIAGNOSES: Mood disorder not otherwise specified Substance-induced mood disorder rule out Methamphetamine use disorder. PLAN -increase Seroquel 100 mg at night, increase gabapentin 300 mg 3 times daily, add doxepin 25 mg at night, discontinue trazodone. Estimated length of stay: 2-3 days. Time spent is 25 minutes. Vital Signs Vital Signs Date Time Temp Pulse Resp B/P (MAP) Pulse Ox O2 Delivery O2 Flow Rate FiO2 10/14/20 05:54 97.6 75 18 116/65 (82) 99 Room Air Current Medications Current Medications Medications (Trade) Dose Ordered Sig/Conner Route PRN Reason Start Time Stop Time Status Last Admin Dose Admin Al Hydrox/Mg Hydrox/Simethicone (Mylanta) 30 ml Q4HP PRN PO HEARTBURN/INDIGESTION 09/23/20 16:35 Artificial Tears (Akwa Tears) 2 drop TIDP PRN OU DRY EYES 09/26/20 15:30 10/14/20 11:50 Diphenhydramine HCl (Benadryl) 50 mg STAT STAT IM 09/25/20 13:09 09/25/20 13:10 DC 09/25/20 13:19 Diphenhydramine HCl (Benadryl) 50 mg STAT STAT IM 10/05/20 10:18 10/05/20 10:21 DC 10/05/20 10:25 Doxepin HCl (SINEquan) 25 mg QHS PO 10/13/20 21:00 10/13/20 20:02 Fluticasone Propionate (Flonase 0.05% Nasal [place]) 1 spray BID NARES 09/26/20 21:00 10/14/20 08:18 Gabapentin (Neurontin) 100 mg TID PO 10/10/20 16:00 10/13/20 10:05 DC 10/13/20 08:43 Gabapentin (Neurontin) 300 mg TID PO 10/13/20 16:00 10/14/20 08:18 Haloperidol (Haldol) 10 mg STAT STAT IM 09/25/20 13:09 09/25/20 13:10 DC 09/25/20 13:19 Haloperidol (Haldol) 10 mg STAT STAT IM 10/05/20 10:18 10/05/20 10:21 DC 10/05/20 10:25 Home Med (Home Med List Complete!) ASDIRECTED XX 09/22/20 21:45 09/22/20 21:44 DC Hydroxyzine HCl (Atarax) 50 mg Q6HP PRN PO ANXIETY 09/24/20 14:35 09/29/20 15:41 DC 09/28/20 21:11 Hydroxyzine HCl (Atarax) 100 mg Q6HP PRN PO ANXIETY 09/29/20 15:40 10/08/20 07:26 DC 10/07/20 21:20 Ibuprofen (Advil) 400 mg Q6HP PRN PO MODERATE PAIN (PS 5-7) 09/23/20 16:35 10/12/20 00:09 Lorazepam (Ativan) 2 mg STAT STAT IM 09/25/20 13:09 09/25/20 13:10 DC 09/25/20 13:19 Lorazepam (Ativan) 2 mg STAT STAT IM 10/05/20 10:18 10/05/20 10:21 DC 10/05/20 10:25 Magnesium Hydroxide (Milk Of Magnesia) 30 ml DAILYPRN PRN PO CONSTIPATION 09/23/20 16:35 Multivitamins (Theragram-M) 1 tab DAILY PO 09/27/20 09:00 10/14/20 08:18 Nicotine (Nicoderm Cq 14mg) 1 patch DAILY TD 09/24/20 09:00 10/12/20 08:13 Olanzapine (ZyPREXA ZYDIS) 5 mg Q6HP PRN PO AGITATION 09/24/20 14:35 10/12/20 08:13 Olanzapine (ZyPREXA) 5 mg BID PO 10/03/20 09:00 10/03/20 09:29 DC Olanzapine (ZyPREXA) 5 mg BID PO 10/04/20 09:00 10/09/20 16:11 DC 10/08/20 20:05 Quetiapine Fumarate (SEROquel) 50 mg QHS PO 10/09/20 21:00 10/13/20 10:04 DC 10/12/20 20:22 Quetiapine Fumarate (SEROquel) 100 mg QHS PO 10/13/20 21:00 10/13/20 20:02 Risperidone (RisperDAL) 2 mg BID PO 09/26/20 09:00 09/30/20 15:47 DC Risperidone (RisperDAL) 2 mg QHS PO 09/25/20 21:00 09/26/20 11:14 DC Risperidone (RisperDAL) 3 mg BID PO 09/30/20 21:00 10/03/20 09:28 DC 10/02/20 09:44 Trazodone HCl (Desyrel) 50 mg QHSP PRN PO INSOMNIA 09/23/20 16:35 09/29/20 15:41 DC 09/28/20 00:22 Trazodone HCl (Desyrel) 50 mg QHSP PRN PO INSOMNIA 10/07/20 09:00 10/13/20 10:04 DC 10/12/20 20:23 Allergies Coded Allergies: amoxicillin (Verified Allergy, Unknown, 08/22/20) cefuroxime (Verified Allergy, Unknown, 08/22/20) clavulanic acid (Verified Allergy, Unknown, 08/22/20) UMESH KOEHLER MD Oct 14, 2020 15:03
[2020-10-14 19:04] VITALS: BP 164/87
[2020-10-14] MEDS: DOXEPIN 25 MG CAP PO SCH (20:36)
[2020-10-14] MEDS: QUEtiapine FUMARATE 100 MG TAB PO SCH (20:36)
[2020-10-15] MEDS: NICOTINE 14 MG/24 HR TRANSDERMAL TD SCH ×2 (08:09→15:33)
[2020-10-15] MEDS: MULTIVITAMINS/MINERALS THERAP 1 TAB PO SCH (08:10)
[2020-10-15] MEDS: GABAPENTIN 300 MG CAP PO SCH (08:10)
[2020-10-15] MEDS: FLUTICASONE PROP 0.05% NASAL SPRAY 16 GM (FLONASE) NARES SCH ×2 (08:10→20:39)
--- NOTE | 2020-10-15 12:37 | MHIPNPDOC ---
[facility] Progress Note Progress Note DATE OF SERVICE: 10/15/20 SUBJECTIVE: "My mother is willing to take me home, from there I will look for my job" OBJECTIVE: He is a 25-year-old male, unemployed, who was admitted after he had an argument with his father, he made some suicidal statement. His stressors are a breakup with his girlfriend. This is his first psychiatric hospitalization in [facility]. He reports he was on treatment in the past for depression with Remeron, it helped him in the past. Currently, patient is still depressed, somewhat isolative. Agreed for change in medications, agreed to take Seroquel. Patient gives good personal hygiene, his interaction with peers is minimal, he is guilty of past drug use. His sleep and appetite are good. Complains of anxiety, and some mood swings, otherwise patient is doing well interacting with peers and staff. Denies any side effects from the medications. MENTAL STATUS EXAMINATION: Casually dressed with clean clothes. Cooperative, made good eye contact. Speech normal, soft. Thought process linear, goal-directed, few words. Thought content: Denied any suicidal thoughts, denied any homicidal ideas. Insight and judgment are fair. Memory immediate, remote, recent are good. DIAGNOSES: Mood disorder not otherwise specified Substance-induced mood disorder rule out Methamphetamine use disorder. PLAN -continue current medications as below. Can be discharged home tomorrow if he is accepted by the family. Estimated length of stay: 2-3 days. Time spent is 25 minutes. Vital Signs Vital Signs Date Time Temp Pulse Resp B/P (MAP) Pulse Ox O2 Delivery O2 Flow Rate FiO2 10/14/20 19:04 98.0 92 18 164/87 (112) 98 Room Air Current Medications Current Medications Medications (Trade) Dose Ordered Sig/Conner Route PRN Reason Start Time Stop Time Status Last Admin Dose Admin Al Hydrox/Mg Hydrox/Simethicone (Mylanta) 30 ml Q4HP PRN PO HEARTBURN/INDIGESTION 09/23/20 16:35 Artificial Tears (Akwa Tears) 2 drop TIDP PRN OU DRY EYES 09/26/20 15:30 10/14/20 20:36 Diphenhydramine HCl (Benadryl) 50 mg STAT STAT IM 09/25/20 13:09 09/25/20 13:10 DC 09/25/20 13:19 Diphenhydramine HCl (Benadryl) 50 mg STAT STAT IM 10/05/20 10:18 10/05/20 10:21 DC 10/05/20 10:25 Doxepin HCl (SINEquan) 25 mg QHS PO 10/13/20 21:00 10/14/20 20:36 Fluticasone Propionate (Flonase 0.05% Nasal [place]) 1 spray BID NARES 09/26/20 21:00 10/15/20 08:10 Gabapentin (Neurontin) 100 mg TID PO 10/10/20 16:00 10/13/20 10:05 DC 10/13/20 08:43 Gabapentin (Neurontin) 300 mg TID PO 10/13/20 16:00 10/15/20 08:10 Haloperidol (Haldol) 10 mg STAT STAT IM 09/25/20 13:09 09/25/20 13:10 DC 09/25/20 13:19 Haloperidol (Haldol) 10 mg STAT STAT IM 10/05/20 10:18 10/05/20 10:21 DC 10/05/20 10:25 Home Med (Home Med List Complete!) ASDIRECTED XX 09/22/20 21:45 09/22/20 21:44 DC Hydroxyzine HCl (Atarax) 50 mg Q6HP PRN PO ANXIETY 09/24/20 14:35 09/29/20 15:41 DC 09/28/20 21:11 Hydroxyzine HCl (Atarax) 100 mg Q6HP PRN PO ANXIETY 09/29/20 15:40 10/08/20 07:26 DC 10/07/20 21:20 Ibuprofen (Advil) 400 mg Q6HP PRN PO MODERATE PAIN (PS 5-7) 09/23/20 16:35 10/12/20 00:09 Lorazepam (Ativan) 2 mg STAT STAT IM 09/25/20 13:09 09/25/20 13:10 DC 09/25/20 13:19 Lorazepam (Ativan) 2 mg STAT STAT IM 10/05/20 10:18 10/05/20 10:21 DC 10/05/20 10:25 Magnesium Hydroxide (Milk Of Magnesia) 30 ml DAILYPRN PRN PO CONSTIPATION 09/23/20 16:35 Multivitamins (Theragram-M) 1 tab DAILY PO 09/27/20 09:00 10/15/20 08:10 Nicotine (Nicoderm Cq 14mg) 1 patch DAILY TD 09/24/20 09:00 10/12/20 08:13 Olanzapine (ZyPREXA ZYDIS) 5 mg Q6HP PRN PO AGITATION 09/24/20 14:35 10/12/20 08:13 Olanzapine (ZyPREXA) 5 mg BID PO 10/03/20 09:00 10/03/20 09:29 DC Olanzapine (ZyPREXA) 5 mg BID PO 10/04/20 09:00 10/09/20 16:11 DC 10/08/20 20:05 Quetiapine Fumarate (SEROquel) 50 mg QHS PO 10/09/20 21:00 10/13/20 10:04 DC 10/12/20 20:22 Quetiapine Fumarate (SEROquel) 100 mg QHS PO 10/13/20 21:00 10/14/20 20:36 Risperidone (RisperDAL) 2 mg BID PO 09/26/20 09:00 09/30/20 15:47 DC Risperidone (RisperDAL) 2 mg QHS PO 09/25/20 21:00 09/26/20 11:14 DC Risperidone (RisperDAL) 3 mg BID PO 09/30/20 21:00 10/03/20 09:28 DC 10/02/20 09:44 Trazodone HCl (Desyrel) 50 mg QHSP PRN PO INSOMNIA 09/23/20 16:35 09/29/20 15:41 DC 09/28/20 00:22 Trazodone HCl (Desyrel) 50 mg QHSP PRN PO INSOMNIA 10/07/20 09:00 10/13/20 10:04 DC 10/12/20 20:23 Allergies Coded Allergies: amoxicillin (Verified Allergy, Unknown, 08/22/20) cefuroxime (Verified Allergy, Unknown, 08/22/20) clavulanic acid (Verified Allergy, Unknown, 08/22/20) UMESH KOEHLER MD Oct 15, 2020 12:37
[2020-10-15] MEDS: GABAPENTIN 400MG CAP PO SCH ×2 (15:12→20:39)
[2020-10-15] MEDS: DOXEPIN 25 MG CAP PO SCH (20:39)
[2020-10-15] MEDS: QUEtiapine FUMARATE 100 MG TAB PO SCH (20:39)
[2020-10-16] MEDS: MULTIVITAMINS/MINERALS THERAP 1 TAB PO SCH (08:32)
[2020-10-16] MEDS: FLUTICASONE PROP 0.05% NASAL SPRAY 16 GM (FLONASE) NARES SCH ×2 (08:32→21:15)
[2020-10-16] MEDS: GABAPENTIN 400MG CAP PO SCH ×3 (08:32→21:15)
[2020-10-16] MEDS: NICOTINE 14 MG/24 HR TRANSDERMAL TD SCH (08:33)
[2020-10-16] MEDS: POLYVINYL ALCOHOL OPHTH SOLN 15 ML(LIQUITEARS) OU PRN (12:17)
--- NOTE | 2020-10-16 14:59 | MHIPNPDOC ---
[facility] Progress Note Progress Note DATE OF SERVICE: 10/16/20 SUBJECTIVE: "I have no anxiety, I do not need any change in medications, I will be going home tomorrow" OBJECTIVE: He is a 25-year-old male, unemployed, who was admitted after he had an argument with his father, he made some suicidal statement. His stressors are a breakup with his girlfriend. This is his first psychiatric hospitalization in [facility]. He reports he was on treatment in the past for depression with Remeron, it helped him in the past. Currently, patient is still depressed, somewhat isolative. Agreed for change in medications, agreed to take Seroquel. Patients personal hygiene is good, his interaction with peers is minimal, he is guilty of past drug use. His sleep and appetite are good. Denies anxiety, or mood swings, patient is doing well interacting with peers and staff. Denies any side effects from the medications. MENTAL STATUS EXAMINATION: Casually dressed with clean clothes. Cooperative, made good eye contact. Speech normal, soft. Thought process linear, goal-directed, few words. Thought content: Denied any suicidal thoughts, denied any homicidal ideas. Insight and judgment are fair. Memory immediate, remote, recent are good. DIAGNOSES: Mood disorder not otherwise specified Substance-induced mood disorder rule out Methamphetamine use disorder. PLAN -c can be discharged tomorrow, his father is willing to take him back. Time spent is 25 minutes. Vital Signs Vital Signs Date Time Temp Pulse Resp B/P (MAP) Pulse Ox O2 Delivery O2 Flow Rate FiO2 10/14/20 19:04 98.0 92 18 164/87 (112) 98 Room Air Current Medications Current Medications Medications (Trade) Dose Ordered Sig/Conner Route PRN Reason Start Time Stop Time Status Last Admin Dose Admin Al Hydrox/Mg Hydrox/Simethicone (Mylanta) 30 ml Q4HP PRN PO HEARTBURN/INDIGESTION 09/23/20 16:35 Artificial Tears (Akwa Tears) 2 drop TIDP PRN OU DRY EYES 09/26/20 15:30 10/16/20 12:17 Diphenhydramine HCl (Benadryl) 50 mg STAT STAT IM 09/25/20 13:09 09/25/20 13:10 DC 09/25/20 13:19 Diphenhydramine HCl (Benadryl) 50 mg STAT STAT IM 10/05/20 10:18 10/05/20 10:21 DC 10/05/20 10:25 Doxepin HCl (SINEquan) 25 mg QHS PO 10/13/20 21:00 10/15/20 20:39 Fluticasone Propionate (Flonase 0.05% Nasal [place]) 1 spray BID NARES 09/26/20 21:00 10/16/20 08:32 Gabapentin (Neurontin) 100 mg TID PO 10/10/20 16:00 10/13/20 10:05 DC 10/13/20 08:43 Gabapentin (Neurontin) 300 mg TID PO 10/13/20 16:00 10/15/20 13:44 DC 10/15/20 08:10 Gabapentin (Neurontin) 400 mg TID PO 10/15/20 16:00 10/16/20 08:32 Haloperidol (Haldol) 10 mg STAT STAT IM 09/25/20 13:09 09/25/20 13:10 DC 09/25/20 13:19 Haloperidol (Haldol) 10 mg STAT STAT IM 10/05/20 10:18 10/05/20 10:21 DC 10/05/20 10:25 Home Med (Home Med List Complete!) ASDIRECTED XX 09/22/20 21:45 09/22/20 21:44 DC Hydroxyzine HCl (Atarax) 50 mg Q6HP PRN PO ANXIETY 09/24/20 14:35 09/29/20 15:41 DC 09/28/20 21:11 Hydroxyzine HCl (Atarax) 100 mg Q6HP PRN PO ANXIETY 09/29/20 15:40 10/08/20 07:26 DC 10/07/20 21:20 Ibuprofen (Advil) 400 mg Q6HP PRN PO MODERATE PAIN (PS 5-7) 09/23/20 16:35 10/12/20 00:09 Lorazepam (Ativan) 2 mg STAT STAT IM 09/25/20 13:09 09/25/20 13:10 DC 09/25/20 13:19 Lorazepam (Ativan) 2 mg STAT STAT IM 10/05/20 10:18 10/05/20 10:21 DC 10/05/20 10:25 Magnesium Hydroxide (Milk Of Magnesia) 30 ml DAILYPRN PRN PO CONSTIPATION 09/23/20 16:35 Multivitamins (Theragram-M) 1 tab DAILY PO 09/27/20 09:00 10/16/20 08:32 Nicotine (Nicoderm Cq 14mg) 1 patch DAILY TD 09/24/20 09:00 10/16/20 08:33 Olanzapine (ZyPREXA ZYDIS) 5 mg Q6HP PRN PO AGITATION 09/24/20 14:35 10/12/20 08:13 Olanzapine (ZyPREXA) 5 mg BID PO 10/03/20 09:00 10/03/20 09:29 DC Olanzapine (ZyPREXA) 5 mg BID PO 10/04/20 09:00 10/09/20 16:11 DC 10/08/20 20:05 Quetiapine Fumarate (SEROquel) 50 mg QHS PO 10/09/20 21:00 10/13/20 10:04 DC 10/12/20 20:22 Quetiapine Fumarate (SEROquel) 100 mg QHS PO 10/13/20 21:00 10/15/20 20:39 Risperidone (RisperDAL) 2 mg BID PO 09/26/20 09:00 09/30/20 15:47 DC Risperidone (RisperDAL) 2 mg QHS PO 09/25/20 21:00 09/26/20 11:14 DC Risperidone (RisperDAL) 3 mg BID PO 09/30/20 21:00 10/03/20 09:28 DC 10/02/20 09:44 Trazodone HCl (Desyrel) 50 mg QHSP PRN PO INSOMNIA 09/23/20 16:35 09/29/20 15:41 DC 09/28/20 00:22 Trazodone HCl (Desyrel) 50 mg QHSP PRN PO INSOMNIA 10/07/20 09:00 10/13/20 10:04 DC 10/12/20 20:23 Allergies Coded Allergies: amoxicillin (Verified Allergy, Unknown, 08/22/20) cefuroxime (Verified Allergy, Unknown, 08/22/20) clavulanic acid (Verified Allergy, Unknown, 08/22/20) UMESH KOEHLER MD Oct 16, 2020 14:59
[2020-10-16 18:09] VITALS: BP 138/75
[2020-10-16] MEDS: DOXEPIN 25 MG CAP PO SCH (21:15)
[2020-10-16] MEDS: QUEtiapine FUMARATE 100 MG TAB PO SCH (21:15)
[2020-10-17 08:08] VITALS: BP 138/73
[2020-10-17] MEDS: NICOTINE 14 MG/24 HR TRANSDERMAL TD SCH (08:09)
[2020-10-17] MEDS: FLUTICASONE PROP 0.05% NASAL SPRAY 16 GM (FLONASE) NARES SCH (08:09)
[2020-10-17] MEDS: MULTIVITAMINS/MINERALS THERAP 1 TAB PO SCH (08:09)
[2020-10-17] MEDS: GABAPENTIN 400MG CAP PO SCH (08:09)
[2020-10-17] MEDS: IBUPROFEN 400MG TAB PO PRN (09:59)
[2020-10-17] MEDS ORDERED: GABA-283 PO (10:00)
[2020-10-17] MEDS ORDERED: QUET100T2 PO (10:00)
--- NOTE | 2020-10-17 12:33 | MHDS ---
[facility] DISCHARGE SUMMARY DATE OF ADMISSION: 09/23/2020 DATE OF DISCHARGE: 10/16/2020 DIAGNOSES: Mood disorder not otherwise specified, substance induced mood disorder, methamphetamine use disorder. IDENTIFYING DATA: The patient is a 37-year-old, male unemployed, who was admitted after he had an argument with his father and made some suicidal statements. His stressors were breakup with his girlfriend. For details of HPI, past psychiatric history, substance abuse history, medical history, personal history, please refer to the initial evaluation. COURSE IN THE HOSPITAL: Patient initially was complaining of some depression and reported that he used a lot of drugs. He had some odd feelings in his body. He was expressing vaguely about his girlfriend. He was placed on Seroquel and Gabapentin. He made gradual recovery. He started attending groups and activities. His suicidal thoughts resolved, and he started sleeping better. He was stable at the time of discharge. MENTAL STATUS EXAMINATION: Casually dressed with good personalizing, cooperative. Made good eye contact. Speech: Rate, rhythm and volume are good. Denied any suicidal or homicidal ideas. Denied any hallucinations. Memory: Immediate, remote, recent are good. Oriented to time, place and person. He was stable at the time of discharge. Vital signs: Temperature 98.2, pulse 90, respiratory rate 17, blood pressure 138/73, pulse oximetry 100%. LABORATORY DATA: CBC within normal limits. CMP within normal limits. Urine toxicology was positive for Cannabis. PLAN: Discharge the patient home. Follow-up at [facility]. DISCHARGE MEDICATIONS: 1. Gabapentin 400 mg t.i.d. 2. Quetiapine 100 mg at night.
== END 2020-10-17 10:49 | disposition home or self-care (01) | DRG 776 ==
LOC: M ED 19:32 → M ED INP 09-23 16:35 → M PSY 09-23 17:46
PROVIDERS: ADMIT Psychiatry & Neurology Psychiatry; ATTEND Psychiatry & Neurology Psychiatry
DX: F15.14 Other stimulant abuse with stimulant-induced mood disorder (principal); F29 Unspecified psychosis not due to a substance or known physiological condition; F41.1 Generalized anxiety disorder; F12.10 Cannabis abuse, uncomplicated; R45.851 Suicidal ideations; Z63.0 Problems in relationship with spouse or partner; Z56.0 Unemployment, unspecified; Z59.0 Homelessness; F17.210 Nicotine dependence, cigarettes, uncomplicated; Z20.822 Contact with and (suspected) exposure to COVID-19; Z79.899 Other long term (current) drug therapy; Z88.1 Allergy status to other antibiotic agents; Z88.8 Allergy status to other drugs, medicaments and biological substances; Z78.1 Physical restraint status; F20.9 Schizophrenia, unspecified

== ENCOUNTER → 2020-12-17 | Outpatient (REF) | payer BC ==
[~2020-12-17] MED LIST changes: +FLUTISP NARES; +GABA-283 PO; +HYDR50TA70 PO; +NICO14PA TD; +POLYOPD OU; +QUET100T2 PO; +VITMTA PO
[2020-12-18 15:55] LABS: BASO % 0.5 % (0.0-1.0); EOS # 0.3 10^3/uL (0.0-0.5); EOS % 3.3 % (0.0-3.0); HEMATOCRIT 42.2 % (42.0-52.0); HEMOGLOBIN 14.3 g/dl (13.5-17.5); LYMPH # 1.8 10^3/uL (1.5-5.0); LYMPH % 21.2 % (24.0-44.0); MEAN CORPUSCULAR HGB CONC 33.9 g/dl (32.0-36.5); MEAN CORPUSCULAR VOLUME 91.3 fl (80.0-96.0); MONO # 0.9 10^3/uL (0.0-0.8); MONO % 10.9 % (2.0-8.0); NEUTROPHILS # 5.4 10^3/uL (1.5-8.5); NEUTROPHILS % 63.7 % (36.0-66.0); PLATELET COUNT, AUTOMATED 229 10^3/uL (150-450); RED BLOOD COUNT 4.62 10^6/uL (4.30-6.10); WHITE BLOOD COUNT 8.5 10^3/uL (4.0-10.0)
[2020-12-18 16:31] LABS: ALT/SGPT 24 U/L (12-78); BILIRUBIN,TOTAL 0.2 MG/DL (0.2-1.0); BLOOD UREA NITROGEN 11 MG/DL (7-18); CALCIUM LEVEL 9.2 MG/DL (8.5-10.1); CARBON DIOXIDE LEVEL 28 MEQ/L (21-32); CHLORIDE LEVEL 108 MEQ/L (98-107); CHOLESTEROL LEVEL 183 MG/DL (<200); CHOLESTEROL RISK RATIO 3.452 (<5); CREATININE FOR GFR 0.83 MG/DL (0.70-1.30); GLOMERULAR FILTRATION RATE > 60.0 (>60); GLUCOSE, FASTING 84 MG/DL (70-100); HDL CHOLESTEROL 53 MG/DL (>40); LDL CHOLESTEROL 107 MG/DL (<100); NON-HDL-C 130 MG/DL; POTASSIUM SERUM 4.3 MEQ/L (3.5-5.1); SODIUM LEVEL 140 MEQ/L (136-145); THYROID STIMULATING HORMONE 0.853 uIU/ML (0.358-3.740); TOTAL PROTEIN 6.9 GM/DL (6.4-8.2); TRIGLYCERIDES LEVEL 114 MG/DL (<150)
[2020-12-18 16:32] LABS: TOTAL 25(OH) VITAMIN D 26.4 NG/ML (30.0-100.0)
== END ==
LOC: M SFHCCAPE 08:50
PROVIDERS: ATTEND Physician Assistant
DX: F39 Unspecified mood [affective] disorder (principal); Z13.6 Encounter for screening for cardiovascular disorders

== ENCOUNTER 2021-03-25 00:23 | Inpatient (IN) | payer BC ==
[~2021-03-25] VITALS: Ht 170.2 cm; Wt 66.7 kg
[2021-03-25 05:59] LABS: HEMATOCRIT 40.1 % (42.0-52.0); HEMOGLOBIN 13.9 g/dl (13.5-17.5); MEAN CORPUSCULAR HEMOGLOBIN 31.2 pg (27.0-33.0); MEAN CORPUSCULAR HGB CONC 34.7 g/dl (32.0-36.5); MEAN CORPUSCULAR VOLUME 89.9 fl (80.0-96.0); PLATELET COUNT, AUTOMATED 209 10^3/uL (150-450); RED BLOOD COUNT 4.46 10^6/uL (4.30-6.10); WHITE BLOOD COUNT 8.8 10^3/uL (4.0-10.0)
[2021-03-25 06:30] LABS: AMPHETAMINES LEVEL URINE NEGATIVE (NEGATIVE); BARBITURATES URINE NEGATIVE (NEGATIVE); BENZODIAZEPINES URINE NEGATIVE (NEGATIVE); CANNABINOIDS URINE NEGATIVE (NEGATIVE); COCAINE METABOLITE URINE NEGATIVE (NEGATIVE); METHADONE URINE NEGATIVE (NEGATIVE); OPIATES URINE NEGATIVE (NEGATIVE); PHENCYCLIDINE URINE NEGATIVE (NEGATIVE)
[2021-03-25 06:58] LABS: ACETAMINOPHEN LEVEL < 2.0 UG/ML (10.0-30.0); ALBUMIN 4.3 GM/DL (3.2-5.2); ALT/SGPT 21 U/L (12-78); BILIRUBIN,DIRECT 0.2 MG/DL (0.0-0.2); BILIRUBIN,TOTAL 0.9 MG/DL (0.2-1.0); BLOOD UREA NITROGEN 12 MG/DL (7-18); CALCIUM LEVEL 9.3 MG/DL (8.5-10.1); CARBON DIOXIDE LEVEL 26 MEQ/L (21-32); CHLORIDE LEVEL 104 MEQ/L (98-107); CREATININE FOR GFR 0.87 MG/DL (0.70-1.30); ETHYL ALCOHOL (ETHANOL) < 0.003 % (0.000-0.010); GLOMERULAR FILTRATION RATE > 60.0 (>60); GLUCOSE, FASTING 92 MG/DL (70-100); SALICYLATE LEVEL < 1.7 MG/DL (5.0-30.0); SODIUM LEVEL 140 MEQ/L (136-145); TOTAL PROTEIN 7.2 GM/DL (6.4-8.2)
[2021-03-25] MEDS ORDERED: HOME MED LIST COMPLETE! XX SCH (07:40)
[2021-03-25] MEDS ORDERED: MOM 30ML SUSPENSION UDC PO PRN (13:40)
[2021-03-25] MEDS ORDERED: traZODone 50 MG TAB PO PRN (13:40)
[2021-03-25] MEDS ORDERED: MAALOX 30 ML SUSP *UDC PO PRN (13:40)
[2021-03-25] MEDS ORDERED: ACETAMINOPHEN TAB 650MG DOSE (2X325MG) PO PRN (13:40)
[2021-03-25 15:16] VITALS: BP 142/75
[2021-03-25] MEDS ORDERED: IBUPROFEN 600MG TAB PO PRN (21:35)
[2021-03-26 06:23] VITALS: BP 117/56
[2021-03-26] MEDS ORDERED: OLANZapine ORAL DISINTEGRATING TAB 5MG PO PRN (14:20)
[2021-03-26 18:11] VITALS: BP 142/79
[2021-03-27 06:24] VITALS: BP 142/75
== END 2021-03-27 14:25 | disposition home or self-care (01) | DRG 755 ==
LOC: M ED 00:23 → M ED INP 13:36 → M PSY 15:18
PROVIDERS: ADMIT Psychiatry & Neurology Psychiatry; ATTEND Psychiatry & Neurology Psychiatry
DX: F43.25 Adjustment disorder with mixed disturbance of emotions and conduct (principal); Z20.822 Contact with and (suspected) exposure to COVID-19; Z88.1 Allergy status to other antibiotic agents; Z88.8 Allergy status to other drugs, medicaments and biological substances; Z63.8 Other specified problems related to primary support group; F17.200 Nicotine dependence, unspecified, uncomplicated; F12.10 Cannabis abuse, uncomplicated; F15.10 Other stimulant abuse, uncomplicated

== ENCOUNTER 2022-02-18 13:36 | Emergency (ER) | payer BC ==
[~2022-02-18] VITALS: Ht 165.1 cm; Wt 62.6 kg
[~2022-02-18 13:36] MED LIST changes: +ALBU6.7H6 INH; -PROV108A INH
[2022-02-18] MEDS ORDERED: NS 1,000 ML IV ONE (15:35)
[2022-02-18] MEDS ORDERED: ONDANSETRON 4MG 2ML VIAL IV ONE (15:35)
[2022-02-18] MEDS ORDERED: ACETAMINOPHEN 1000MG 100ML IV BAG IV ONE (15:35)
[2022-02-18 15:58] LABS: BASO % 0.2 % (0.0-1.0); EOS % 0.1 % (0.0-3.0); HEMATOCRIT 44.4 % (42.0-52.0); HEMOGLOBIN 14.8 g/dl (13.5-17.5); LYMPH # 0.4 10^3/uL (1.5-5.0); LYMPH % 2.3 % (24.0-44.0); MEAN CORPUSCULAR HEMOGLOBIN 30.2 pg (27.0-33.0); MEAN CORPUSCULAR HGB CONC 33.3 g/dl (32.0-36.5); MEAN CORPUSCULAR VOLUME 90.6 fl (80.0-96.0); MONO # 0.8 10^3/uL (0.0-0.8); MONO % 4.4 % (2.0-8.0); NEUTROPHILS # 15.9 10^3/uL (1.5-8.5); NEUTROPHILS % 92.6 % (36.0-66.0); PLATELET COUNT, AUTOMATED 291 10^3/uL (150-450); WHITE BLOOD COUNT 17.2 10^3/uL (4.0-10.0)
[2022-02-18 16:22] LABS: LIPASE 21 U/L (12-53)
[2022-02-18 16:24] LABS: ALBUMIN 4.2 G/DL (3.2-5.2); ALKALINE PHOSPHATASE 81 U/L (46-116); ALT/SGPT 42 U/L (7.0-40); AST/SGOT 43 U/L (<34); BILIRUBIN,DIRECT 0.2 MG/DL (<0.4); BILIRUBIN,TOTAL 0.6 MG/DL (0.3-1.2); BLOOD UREA NITROGEN 14 MG/DL (9-23); CALCIUM LEVEL 9.5 MG/DL (8.5-10.1); CARBON DIOXIDE LEVEL 23 MMOL/L (20-31); CHLORIDE LEVEL 101 MMOL/L (98-107); GLOMERULAR FILTRATION RATE > 60.0 (>60); GLUCOSE, FASTING 103 MG/DL (60-100); POTASSIUM SERUM 4.5 MMOL/L (3.5-5.1); SODIUM LEVEL 136 MMOL/L (136-145); TOTAL PROTEIN 7.2 G/DL (5.7-8.2)
[2022-02-18] MEDS ORDERED: ISOVUE-370 76% 100ML VIAL As Ordered ONE (16:26)
[2022-02-18 16:29] LABS: RSV AMPLIFICATION NEGATIVE (NEGATIVE)
[2022-02-18 17:23] LABS: AMPHETAMINES LEVEL URINE NEGATIVE (NEGATIVE); BARBITURATES URINE NEGATIVE (NEGATIVE); BENZODIAZEPINES URINE NEGATIVE (NEGATIVE); COCAINE METABOLITE URINE NEGATIVE (NEGATIVE); METHADONE URINE NEGATIVE (NEGATIVE); OPIATES URINE NEGATIVE (NEGATIVE); PHENCYCLIDINE URINE NEGATIVE (NEGATIVE)
[2022-02-18 17:24] LABS: CANNABINOIDS URINE POSITIVE (NEGATIVE)
[2022-02-18] MEDS ORDERED: KETOROLAC 30 MG/ML 1ML VIAL IV ONE (17:25)
[2022-02-18 18:08] VITALS: BP 131/67
== END 2022-02-18 18:12 | disposition home or self-care (01) ==
LOC: M ED 13:36
DX: K52.9 Noninfective gastroenteritis and colitis, unspecified (principal); F17.200 Nicotine dependence, unspecified, uncomplicated; F17.290 Nicotine dependence, other tobacco product, uncomplicated; Z88.0 Allergy status to penicillin; Z88.1 Allergy status to other antibiotic agents
CPT/HCPCS: 36415; 72131; 74177; 80048; 80076; 80307; 81002; 83690; 85025; 87631; 96361; 96374; 96375; 99284; J2405

== ENCOUNTER 2022-03-23 14:39 | Emergency (ER) | payer BC ==
[~2022-03-23] VITALS: Ht 162.6 cm; Wt 56.8 kg
[2022-03-23 15:34] LABS: HEMATOCRIT 42.2 % (42.0-52.0); HEMOGLOBIN 14.3 g/dl (13.5-17.5); MEAN CORPUSCULAR HEMOGLOBIN 30.8 pg (27.0-33.0); MEAN CORPUSCULAR HGB CONC 33.9 g/dl (32.0-36.5); MEAN CORPUSCULAR VOLUME 90.9 fl (80.0-96.0); PLATELET COUNT, AUTOMATED 254 10^3/uL (150-450); RED BLOOD COUNT 4.64 10^6/uL (4.30-6.10); WHITE BLOOD COUNT 19.2 10^3/uL (4.0-10.0)
[2022-03-23] MEDS ORDERED: HOME MED LIST COMPLETE! XX SCH (15:45)
[2022-03-23 16:02] LABS: BARBITURATES URINE NEGATIVE (NEGATIVE); BENZODIAZEPINES URINE NEGATIVE (NEGATIVE); METHADONE URINE NEGATIVE (NEGATIVE); PHENCYCLIDINE URINE NEGATIVE (NEGATIVE)
[2022-03-23 16:03] LABS: AMPHETAMINES LEVEL URINE POSITIVE (NEGATIVE); CANNABINOIDS URINE POSITIVE (NEGATIVE); COCAINE METABOLITE URINE POSITIVE (NEGATIVE); OPIATES URINE POSITIVE (NEGATIVE)
[2022-03-23 16:23] LABS: ACETAMINOPHEN LEVEL < 2.0 UG/ML (10.0-20.0); ALBUMIN 4.8 G/DL (3.2-5.2); ALKALINE PHOSPHATASE 104 U/L (46-116); ALT/SGPT 37 U/L (7.0-40); AST/SGOT 81 U/L (<34); BILIRUBIN,DIRECT 0.3 MG/DL (<0.4); BILIRUBIN,TOTAL 1.1 MG/DL (0.3-1.2); BLOOD UREA NITROGEN 19 MG/DL (9-23); CALCIUM LEVEL 9.8 MG/DL (8.5-10.1); CARBON DIOXIDE LEVEL 24 MMOL/L (20-31); CHLORIDE LEVEL 96 MMOL/L (98-107); CREATININE FOR GFR 0.93 MG/DL (0.70-1.30); ETHYL ALCOHOL (ETHANOL) 0.003 % (0.000-0.010); GLOMERULAR FILTRATION RATE > 60.0 (>60); GLUCOSE, FASTING 105 MG/DL (60-100); SALICYLATE LEVEL < 3.0 MG/DL (<30); SODIUM LEVEL 133 MMOL/L (136-145); THYROID STIMULATING HORMONE 0.918 uIU/ML (0.55-4.78)
[2022-03-23 18:26] VITALS: BP 130/70
== END 2022-03-23 20:19 | disposition home or self-care (01) ==
LOC: M ED 14:39
DX: F19.10 Other psychoactive substance abuse, uncomplicated (principal); U07.1 COVID-19; F29 Unspecified psychosis not due to a substance or known physiological condition; F39 Unspecified mood [affective] disorder; F43.20 Adjustment disorder, unspecified; Z88.0 Allergy status to penicillin

== ENCOUNTER 2022-03-30 15:54 | Emergency (ER) | payer BC | END 2022-03-30 16:02 | disposition left against medical advice (07) | LOC: M ED 15:54 | DX: Z53.21 Procedure and treatment not carried out due to patient leaving prior to being seen by health care provider (principal) ==

== ENCOUNTER 2022-06-07 17:12 | Emergency (ER) | payer BC ==
[~2022-06-07] VITALS: Ht 165.1 cm; Wt 62.0 kg
[~2022-06-07 17:12] MED LIST changes: +ARTIDRO4 OU; +FLUT50SP17 NARES; -FLUTISP NARES; -POLYOPD OU
[2022-06-07] MEDS ORDERED: NS 1,000 ML IV ONE (21:05)
[2022-06-07 22:01] LABS: HEMATOCRIT 41.1 % (42.0-52.0); HEMOGLOBIN 13.5 g/dl (13.5-17.5); MEAN CORPUSCULAR HEMOGLOBIN 30.8 pg (27.0-33.0); MEAN CORPUSCULAR HGB CONC 32.8 g/dl (32.0-36.5); MEAN CORPUSCULAR VOLUME 93.8 fl (80.0-96.0); PLATELET COUNT, AUTOMATED 260 10^3/uL (150-450); RED BLOOD COUNT 4.38 10^6/uL (4.30-6.10)
[2022-06-07 22:28] LABS: BARBITURATES URINE NEGATIVE (NEGATIVE); BENZODIAZEPINES URINE NEGATIVE (NEGATIVE); COCAINE METABOLITE URINE NEGATIVE (NEGATIVE); METHADONE URINE NEGATIVE (NEGATIVE); PHENCYCLIDINE URINE NEGATIVE (NEGATIVE)
[2022-06-07 22:30] LABS: ETHYL ALCOHOL (ETHANOL) < 0.003 % (0.000-0.010)
[2022-06-07 22:31] LABS: ACETAMINOPHEN LEVEL < 2.0 UG/ML (10.0-20.0)
[2022-06-07 22:32] LABS: ALBUMIN 3.8 G/DL (3.2-5.2); ALKALINE PHOSPHATASE 83 U/L (46-116); ALT/SGPT 25 U/L (7.0-40); AMPHETAMINES LEVEL URINE POSITIVE (NEGATIVE); AST/SGOT 9 U/L (<34); BILIRUBIN,DIRECT < 0.1 MG/DL (<0.4); BILIRUBIN,TOTAL 0.2 MG/DL (0.3-1.2); BLOOD UREA NITROGEN 14 MG/DL (9-23); CALCIUM LEVEL 9.1 MG/DL (8.5-10.1); CANNABINOIDS URINE POSITIVE (NEGATIVE); CARBON DIOXIDE LEVEL 28 MMOL/L (20-31); CHLORIDE LEVEL 107 MMOL/L (98-107); CREATININE FOR GFR 0.77 MG/DL (0.70-1.30); GLOMERULAR FILTRATION RATE > 60.0 (>60); GLUCOSE, FASTING 118 MG/DL (60-100); OPIATES URINE POSITIVE (NEGATIVE); POTASSIUM SERUM 4.3 MMOL/L (3.5-5.1); SALICYLATE LEVEL < 3.0 MG/DL (<30); SODIUM LEVEL 141 MMOL/L (136-145); TOTAL PROTEIN 6.4 G/DL (5.7-8.2)
[2022-06-07 22:34] LABS: THYROID STIMULATING HORMONE 0.906 uIU/ML (0.55-4.78)
[2022-06-07] MEDS ORDERED: OLANZapine ORAL DISINTEGRATING TAB 5MG PO ONE (23:30)
[2022-06-08 00:40] VITALS: BP 127/69
[2022-06-08] MEDS ORDERED: cloNIDine 0.2 MG TAB PO ONE (00:40)
[2022-06-08] MEDS ORDERED: LORazepam 2 MG/ML 1ML VIAL IM STA (01:32)
[2022-06-08] MEDS ORDERED: HALOPERIDOL 5MG/ML 1ML VIAL IM STA (01:32)
[2022-06-08] MEDS ORDERED: diphenhydrAMINE 50MG/ML VIAL IM ONE (01:35)
[2022-06-08 09:32] VITALS: BP 125/100
== END 2022-06-08 09:35 | disposition home or self-care (01) ==
LOC: EDBD 17:12 → M ED 17:12
DX: S00.03XA Contusion of scalp, initial encounter (principal); W22.8XXA Striking against or struck by other objects, initial encounter; Y92.019 Unspecified place in single-family (private) house as the place of occurrence of the external cause; Y93.89 Activity, other specified; Y99.8 Other external cause status; F19.10 Other psychoactive substance abuse, uncomplicated; F17.200 Nicotine dependence, unspecified, uncomplicated; Z88.0 Allergy status to penicillin; Z88.8 Allergy status to other drugs, medicaments and biological substances
CPT/HCPCS: 70450; 80048; 80076; 80143; 80307; 82077; 84443; 85027; 96372; 99284; J1200; J1630; J2060

== ENCOUNTER 2022-07-06 21:10 | Emergency (ER) | payer BC ==
[~2022-07-06] VITALS: Ht 165.1 cm; Wt 54.6 kg
[2022-07-06 21:11] VITALS: BP 124/71
[2022-07-06] MEDS ORDERED: ONDANSETRON 4MG ORAL DISINTEGRATING TAB PO ONE (21:45)
== END 2022-07-06 21:48 | disposition left against medical advice (07) ==
LOC: M ED 21:10
DX: R11.2 Nausea with vomiting, unspecified (principal); R19.7 Diarrhea, unspecified; Z53.9 Procedure and treatment not carried out, unspecified reason; F17.200 Nicotine dependence, unspecified, uncomplicated; F11.10 Opioid abuse, uncomplicated; F12.10 Cannabis abuse, uncomplicated; Z88.0 Allergy status to penicillin; Z88.1 Allergy status to other antibiotic agents

== ENCOUNTER 2022-09-16 03:41 | Emergency (ER) | payer BC ==
[~2022-09-16 03:41] MED LIST changes: -GABA-283 PO; +GABA-284 PO
[2022-09-16 04:40] VITALS: TEMP 97.8
[2022-09-16 06:30] VITALS: BP 141/69
[2022-09-16 06:45] VITALS: O2SAT 93
== END 2022-09-16 08:04 | disposition home or self-care (01) ==
LOC: M ED 03:41 → EDBD 03:41 → M ED 08:04
DX: F19.10 Other psychoactive substance abuse, uncomplicated (principal); Z88.0 Allergy status to penicillin; Z88.8 Allergy status to other drugs, medicaments and biological substances

== ENCOUNTER 2022-12-24 23:21 | Emergency (ER) | payer BC, OTHER ==
[~2022-12-24] VITALS: Ht 165.1 cm; Wt 56.8 kg
[~2022-12-24 23:21] MED LIST changes: +COLA100C5 PO; +PEPC1TAB5 PO
[2022-12-25 00:48] LABS: BASO % 0.1 % (0.0-1.0); HEMATOCRIT 40.4 % (42.0-52.0); LYMPH # 1.2 10^3/uL (1.5-5.0); LYMPH % 7.5 % (24.0-44.0); MEAN CORPUSCULAR HEMOGLOBIN 30.6 pg (27.0-33.0); MEAN CORPUSCULAR HGB CONC 34.7 g/dl (32.0-36.5); MEAN CORPUSCULAR VOLUME 88.4 fl (80.0-96.0); MONO # 0.6 10^3/uL (0.0-0.8); MONO % 3.7 % (2.0-8.0); NEUTROPHILS # 13.9 10^3/uL (1.5-8.5); NEUTROPHILS % 88.4 % (36.0-66.0); PLATELET COUNT, AUTOMATED 286 10^3/uL (150-450); RED BLOOD COUNT 4.57 10^6/uL (4.30-6.10); WHITE BLOOD COUNT 15.8 10^3/uL (4.0-10.0)
[2022-12-25] MEDS ORDERED: FLEET OIL RETENTION ENEMA PR STA (01:13)
[2022-12-25 01:14] LABS: BLOOD UREA NITROGEN 13 MG/DL (9-23); CALCIUM LEVEL 9.2 MG/DL (8.5-10.1); CARBON DIOXIDE LEVEL 23 MMOL/L (20-31); CHLORIDE LEVEL 99 MMOL/L (98-107); GLOMERULAR FILTRATION RATE > 60.0 (>60); GLUCOSE, FASTING 126 MG/DL (60-100); PHOSPHORUS LEVEL 4.3 MG/DL (2.5-4.9); POTASSIUM SERUM 4.5 MMOL/L (3.5-5.1); SODIUM LEVEL 133 MMOL/L (136-145)
[2022-12-25] MEDS ORDERED: BISACODYL 5MG TAB PO ONE (01:15)
[2022-12-25] MEDS ORDERED: MIRA3350 PO (01:19)
[2022-12-25 01:53] LABS: LIPASE 21 U/L (12-53)
[2022-12-25 01:55] LABS: ALBUMIN 3.8 G/DL (3.2-5.2); ALKALINE PHOSPHATASE 81 U/L (46-116); ALT/SGPT 37 U/L (7.0-40); AST/SGOT 23 U/L (<34); BILIRUBIN,DIRECT 0.2 MG/DL (<0.4); BILIRUBIN,TOTAL 0.7 MG/DL (0.3-1.2); TOTAL PROTEIN 6.5 G/DL (5.7-8.2)
[2022-12-25 02:50] VITALS: BP 144/82; TEMP 99; O2SAT 99
== END 2022-12-25 02:54 | disposition home or self-care (01) ==
LOC: M ED 23:21 → EDBD 23:21 → M ED 12-25 02:54
DX: K59.00 Constipation, unspecified (principal); K21.9 Gastro-esophageal reflux disease without esophagitis; Z88.1 Allergy status to other antibiotic agents; Z88.8 Allergy status to other drugs, medicaments and biological substances; Z79.899 Other long term (current) drug therapy

== ENCOUNTER 2023-02-11 12:17 | Emergency (ER) | payer BC, MEDICAID, OTHER ==
[~2023-02-11] VITALS: Ht 165.1 cm; Wt 63.6 kg
[~2023-02-11 12:17] MED LIST changes: -FLUT50SP17 NARES; +FLUTISP NARES; +MIRA3350 PO
[2023-02-11 13:57] LABS: RSV AMPLIFICATION NEGATIVE (NEGATIVE)
[2023-02-11] MEDS: ACETAMINOPHEN TAB 650MG DOSE (2X325MG) PO ONE (14:10)
[2023-02-11] MEDS: BUPRENORPHINE HCL 8MG SUBINGUAL TABLET SL ONE (15:29)
[2023-02-11] MEDS ORDERED: ACET325C5 PO (15:49)
[2023-02-11] MEDS ORDERED: IBUP-1022 PO (15:49)
[2023-02-11 16:28] VITALS: BP 132/55; TEMP 98.2; O2SAT 96
== END 2023-02-11 16:41 | disposition home or self-care (01) ==
LOC: M ED 12:17
DX: J09.X2 Influenza due to identified novel influenza A virus with other respiratory manifestations (principal); Z87.891 Personal history of nicotine dependence; Z88.1 Allergy status to other antibiotic agents; Z79.899 Other long term (current) drug therapy

== ENCOUNTER 2023-04-09 05:01 | Emergency (ER) | payer BC ==
[~2023-04-09 05:01] MED LIST changes: +ACET325C5 PO; +IBUP-1022 PO
[2023-04-09 08:07] LABS: BASO # 0.1 10^3/uL (0.0-0.2); BASO % 0.4 % (0.0-1.0); EOS # 0.3 10^3/uL (0.0-0.5); EOS % 2.7 % (0.0-3.0); HEMATOCRIT 38.6 % (42.0-52.0); LYMPH # 1.3 10^3/uL (1.5-5.0); LYMPH % 11.7 % (24.0-44.0); MEAN CORPUSCULAR HEMOGLOBIN 30.4 pg (27.0-33.0); MEAN CORPUSCULAR HGB CONC 33.7 g/dl (32.0-36.5); MEAN CORPUSCULAR VOLUME 90.2 fl (80.0-96.0); MONO % 8.7 % (2.0-8.0); NEUTROPHILS # 8.6 10^3/uL (1.5-8.5); NEUTROPHILS % 76.2 % (36.0-66.0); PLATELET COUNT, AUTOMATED 321 10^3/uL (150-450); RED BLOOD COUNT 4.28 10^6/uL (4.30-6.10); WHITE BLOOD COUNT 11.3 10^3/uL (4.0-10.0)
[2023-04-09 08:17] LABS: ERYTHROCYTE SEDIMENTATION RATE 12 mm/hr (0-15)
[2023-04-09 08:33] LABS: C REACTIVE PROTEIN QUANTITATIV < 0.40 MG/DL (<1.0)
[2023-04-09 08:35] LABS: BLOOD UREA NITROGEN 15 MG/DL (9-23); CALCIUM LEVEL 9.2 MG/DL (8.5-10.1); CARBON DIOXIDE LEVEL 28 MMOL/L (20-31); CHLORIDE LEVEL 101 MMOL/L (98-107); CREATININE FOR GFR 0.68 MG/DL (0.70-1.30); GLOMERULAR FILTRATION RATE > 60.0 (>60); GLUCOSE, FASTING 100 MG/DL (60-100); POTASSIUM SERUM 4.3 MMOL/L (3.5-5.1); SODIUM LEVEL 134 MMOL/L (136-145)
[2023-04-09] MEDS: KETOROLAC 30 MG/ML 1ML VIAL IV ONE (09:00)
[2023-04-09] MEDS: LIDOCAINE 2% MDV 20ML VIAL SC ONE (09:14)
[2023-04-09 09:26] LABS: ETHYL ALCOHOL (ETHANOL) 0.007 % (0.000-0.010)
[2023-04-09 09:27] LABS: SALICYLATE LEVEL < 3.0 MG/DL (<30)
[2023-04-09 09:48] LABS: BARBITURATES URINE NEGATIVE (NEGATIVE); BENZODIAZEPINES URINE NEGATIVE (NEGATIVE); METHADONE URINE NEGATIVE (NEGATIVE); OPIATES URINE NEGATIVE (NEGATIVE); PHENCYCLIDINE URINE NEGATIVE (NEGATIVE)
[2023-04-09 09:49] LABS: AMPHETAMINES LEVEL URINE POSITIVE (NEGATIVE); CANNABINOIDS URINE POSITIVE (NEGATIVE); COCAINE METABOLITE URINE POSITIVE (NEGATIVE)
[2023-04-09] MEDS: DALBAVANCIN 1,500 MG in D5W 250 ML IV ONE (10:50)
[2023-04-09 11:02] VITALS: O2SAT 100
[2023-04-09 12:27] VITALS: BP 138/76; TEMP 98.1
== END 2023-04-09 12:43 | disposition home or self-care (01) ==
LOC: EDBD 05:01 → M ED 05:51
DX: L03.012 Cellulitis of left finger (principal); S80.02XA Contusion of left knee, initial encounter; F19.10 Other psychoactive substance abuse, uncomplicated; X58.XXXA Exposure to other specified factors, initial encounter; Y92.9 Unspecified place or not applicable; Y93.9 Activity, unspecified; Y99.9 Unspecified external cause status; Z59.00 Homelessness unspecified; F41.9 Anxiety disorder, unspecified; Z88.0 Allergy status to penicillin; Z88.1 Allergy status to other antibiotic agents
CPT/HCPCS: 10060; 73140; 73564; 80048; 80143; 80307; 82077; 83605; 85025; 85652; 86140; 87040; 87070; 87077; 87186; 87205; 96374; 96375; 99284; J0875; J1885

== ENCOUNTER 2024-03-29 20:26 | Emergency (ER) | payer MEDICAID, SELFPAY ==
[~2024-03-29] VITALS: Ht 165.1 cm; Wt 74.2 kg
[~2024-03-29 20:26] MED LIST changes: +ONDA-282 PO; -ONDA4TAB6 PO
[2024-03-29 20:30] VITALS: BP 154/98; TEMP 98.3; O2SAT 98
[2024-03-29] MEDS: IBUPROFEN 600MG TAB PO ONE (21:47)
[2024-03-29] MEDS: CLINDAMYCIN 150MG CAPSULE PO ONE (21:48)
== END 2024-03-29 22:14 | disposition home or self-care (01) ==
LOC: M ED 20:26 → EDBD 20:26 → M ED 22:14
DX: K02.9 Dental caries, unspecified (principal); Z88.0 Allergy status to penicillin; Z88.1 Allergy status to other antibiotic agents; Z88.8 Allergy status to other drugs, medicaments and biological substances

== ENCOUNTER → 2024-05-04 | Outpatient (CLI) | payer MEDICAID ==
[2024-05-04 14:32] LABS: BASO # 0.1 10^3/uL (0.0-0.2); BASO % 1.4 % (0.0-1.0); EOS % 13.5 % (0.0-3.0); HEMATOCRIT 43.8 % (42.0-52.0); HEMOGLOBIN 15.1 g/dl (13.5-17.5); LYMPH # 2.7 10^3/uL (1.5-5.0); LYMPH % 38.2 % (24.0-44.0); MEAN CORPUSCULAR HEMOGLOBIN 30.3 pg (27.0-33.0); MEAN CORPUSCULAR HGB CONC 34.5 g/dl (32.0-36.5); MEAN CORPUSCULAR VOLUME 87.8 fl (80.0-96.0); MONO # 0.5 10^3/uL (0.0-0.8); MONO % 6.6 % (2.0-8.0); NEUTROPHILS # 2.8 10^3/uL (1.5-8.5); NEUTROPHILS % 40.2 % (36.0-66.0); PLATELET COUNT, AUTOMATED 307 10^3/uL (150-450); RED BLOOD COUNT 4.99 10^6/uL (4.30-6.10)
[2024-05-04 14:40] LABS: BACTERIA, URINE AUTO NEGATIVE (NEGATIVE); MUCUS, URINE SMALL (NEGATIVE); RBC, URINE AUTO 0 /HPF (0-3); SQUAMOUS EPITHELIAL CELL UR AU 0 /HPF (0-6); WBC, URINE AUTO 0 /HPF (0-3)
[2024-05-04 14:54] LABS: ALBUMIN 4.5 G/DL (3.2-5.2); ALKALINE PHOSPHATASE 144 U/L (40-129); ALT/SGPT 16 U/L (7.0-40); AST/SGOT 13 U/L (<34); BILIRUBIN,TOTAL 0.5 MG/DL (0.3-1.2); BLOOD UREA NITROGEN 13 MG/DL (9-23); CALCIUM LEVEL 9.7 MG/DL (8.5-10.1); CARBON DIOXIDE LEVEL 27 MMOL/L (20-31); CHLORIDE LEVEL 102 MMOL/L (98-107); CREATININE FOR GFR 0.92 MG/DL (0.70-1.30); GLOMERULAR FILTRATION RATE > 60.0 (>60); GLUCOSE, FASTING 95 MG/DL (60-100); POTASSIUM SERUM 4.8 MMOL/L (3.5-5.1); SODIUM LEVEL 139 MMOL/L (136-145); TOTAL PROTEIN 7.4 G/DL (5.7-8.2)
[2024-05-04 15:07] LABS: HEPATITIS B SURFACE ANTIGEN NEGATIVE (NEGATIVE)
[2024-05-04 15:28] LABS: HEPATITIS B CORE ANTIBODY IGM NEGATIVE (NEGATIVE); HEPATITIS C VIRUS ABY INDEX 0.02 INDEX (<0.8)
== END ==
LOC: M WUC 12:20
DX: Z00.8 Encounter for other general examination (principal)